=== PATIENT | female | born 1975 | race Asian ===

== ENCOUNTER → 2016-11-27 | Outpatient (CLI) | payer OTHER ==
[~2016-11-27] MED LIST: CARB1CAP9 PO; CARB200T PO; HYDR-3419 PO; LAMO1TAB PO; LAMO1TAB76 PO; NORE0.3526 PO
== END | disposition home or self-care (01) ==
LOC: C.PAPS 10:23
PROVIDERS: ATTEND Physician Assistant
DX: Z12.4 Encounter for screening for malignant neoplasm of cervix (principal)

== ENCOUNTER → 2017-01-15 | Outpatient (CLI) | payer OTHER ==
[~2017-01-15] MED LIST changes: -NORE0.3526 PO; +NORE0.3528 PO
== END | disposition home or self-care (01) ==
LOC: C.PATHSPEC 10:51
PROVIDERS: ATTEND Plastic Surgery
DX: D23.11 Other benign neoplasm of skin of right eyelid, including canthus (principal); D23.39 Other benign neoplasm of skin of other parts of face

== ENCOUNTER 2017-03-03 10:51 | Emergency (ER) | payer OTHER ==
[~2017-03-03] VITALS: Ht 172.7 cm; Wt 71.9 kg
[~2017-03-03 10:51] MED LIST changes: -NORE0.3528 PO
[2017-03-03 10:52] VITALS: TEMP 36.9; Ht 172.7 cm; Wt 71.9 kg
[2017-03-03] MEDS ORDERED: NORE0.3528 PO (11:26)
[2017-03-03 13:02] LABS: BASO % 0.6 %; BASO ABS # 0.03 K/uL (0-0.2); COMPLETE YES; EOS % 1.3 %; HEMATOCRIT 37.6 % (37-47); IG% 0.2 %; LYMPH % 30.5 %; LYMPH ABS # 1.66 K/uL (1.2-3.4); MEAN CELL VOLUME 90.6 fL (80-100); MEAN CORPUSCULAR HEMOGLOBIN 30.8 pg (25-34); MONO % 9.4 %; PLATELET COUNT 224 K/uL (130-400); RED BLOOD COUNT 4.15 M/uL (4.2-5.4); WHITE BLOOD COUNT 5.45 K/uL (4.8-10.8)
--- NOTE | 2017-03-03 13:03 | DIAGNOSTIC IMAGING REPORT ---
SINGLE VIEW CHEST CLINICAL HISTORY: Change in mental status. Weakness. FINDINGS: An AP, portable, upright chest radiograph is compared to study dated 07/15/2013. The examination is degraded by portable technique and patient rotation. The cardiomediastinal silhouette is unremarkable. The lungs and pleural spaces are clear. No pneumothorax is seen. The bony thorax is grossly intact. IMPRESSION: No active disease in the chest. Electronically signed by: Gunnar Nazario M.D. 03/03/2017 12:43 PM Dictated Date/Time: 03/03/2017 12:42 PM
[2017-03-03 13:08] LABS: ALT/SGPT 21 U/L (12-78); BLOOD UREA NITROGEN 5 mg/dl (7-18); BUN/CREATININE RATIO 8.2 (10-20); CALCIUM 8.8 mg/dl (8.5-10.1); CARBON DIOXIDE 27 mmol/L (21-32); CHLORIDE 106 mmol/L (98-107); CREATININE 0.66 mg/dl (0.60-1.20); GLUCOSE 89 mg/dl (70-99); SODIUM 139 mmol/L (136-145)
[2017-03-03 13:12] LABS: ALKALINE PHOSPHATASE 83 U/L (45-117)
--- NOTE | 2017-03-03 13:33 | DIAGNOSTIC IMAGING REPORT ---
HEAD WITHOUT CONTRAST (CT) CLINICAL HISTORY: 41 years-old Female with EVALUATE ALTERED MENTAL STATUS/WEAKNESS. Acute altered mental status. Initial exam. TECHNIQUE: Multiple axial CT images of the head were obtained without contrast. A dose lowering technique was utilized adhering to the principles of ALARA. CT DOSE: 638.56 mGycm COMPARISON: CT head 07/15/2013. FINDINGS: No acute intracranial hemorrhage, midline shift, mass, large territorial ischemia or abnormal extra-axial collection. Focal 6 mm area of low attenuation within the inferior left lentiform nucleus is unchanged suggesting prominent perivascular space with remote lacunar infarction considered less likely. The calvarium is intact. The paranasal sinuses, mastoid air cells, and middle ear cavities are clear. IMPRESSION: No acute intracranial abnormality. The above report was generated using voice recognition software. It may contain grammatical, syntax or spelling errors. Electronically signed by: Tristian Tomlinson M.D. 03/03/2017 1:32 PM Dictated Date/Time: 03/03/2017 1:29 PM
[2017-03-03 13:59] LABS: POTASSIUM 3.3 mmol/L (3.5-5.1)
--- NOTE | 2017-03-03 15:07 | EMERGENCY ROOM VISIT NOTE ---
History Report prepared by Ramiro: Mariah Pang Under the Supervision of: Dr. Fabien Sarabia D.O. First contact with patient: 11:58 Chief Complaint: DIZZY Stated Complaint: DIZZINESS Nursing Triage Summary: Pt. arrived to exam room via EMS transport. Per EMS pt. had dizziness this morning and [facility] staff reported possible seizure activity yesterday and a fall. Pt. reports some dizziness now. History of Present Illness The patient is a 41 year old female who presents to the Emergency Room with complaints of persistent dizziness that began this morning. Per nursing notes, the patient arrives to the emergency department via ALS. Nursing staff notes that the patient complained of dizziness at her [facility] this morning. Nursing staff notes that the patient had possible seizure like activity yesterday and additionally had a fall. The patient denies any pain today. The history is limited secondary to the patient's mental status. Source of History: patient, nursing staff History Limited By: AMS Onset: this morning Position: other (global) Quality: other (dizziness) Timing: other (persistent) Note: Associated Symptoms: seizure like activity, fall Review of Systems The history is limited secondary to the patient's mental status Past Medical & Surgical Medical Problems: (1) Cerebral palsy (2) Seizure disorder Family History Cancer Seizures Social History Smoking Status: Unknown if Ever Smoked Smokeless Tobacco Use: No Alcohol Use: none Marital Status: single Occupation Status: disabled Current/Historical Medications Scheduled Norethindrone (Contraceptive) (Sarah), 1 TAB PO DAILY Allergies Coded Allergies: No Known Allergies (Unverified , 07/15/13) Physical Exam Vital Signs Date Time Temp Pulse Resp B/P (MAP) Pulse Ox O2 Delivery O2 Flow Rate FiO2 03/03/17 14:11 72 14 112/56 100 Room Air 03/03/17 12:16 66 15 123/76 99 Room Air 03/03/17 11:16 66 03/03/17 10:52 36.9 65 15 114/62 100 Room Air Physical Exam CONSTITUTIONAL/VITAL SIGNS: Reviewed / noted above. GENERAL: Non-toxic in appearance. INTEGUMENTARY: Warm, dry, and [employer]. HEAD: Normocephalic. EYES: without scleral icterus or trauma. ENT/OROPHARYNX: clear and moist. LYMPHADENOPATHY/NECK: Is supple without lymphadenopathy or meningismus. RESPIRATORY: Lungs clear and equal. CARDIOVASCULAR: Regular rate and rhythm. GI/ABDOMEN: Soft and nontender. No organomegaly or pulsatile mass. No rebound or guarding. Normal bowel sounds. EXTREMITIES: Warm and well perfused. BACK: No CVA tenderness. NEUROLOGICAL: Intact without focal deficits. PSYCHIATRIC: normal affect. MUSCULOSKELETAL: Normally developed with good muscle tone. Medical Decision & Procedures ER Provider Diagnostic Interpretation: Radiology results as stated below per my review and radiologist interpretation: HEAD WITHOUT CONTRAST (CT) CLINICAL HISTORY: 41 years-old Female with EVALUATE ALTERED MENTAL STATUS/WEAKNESS. Acute altered mental status. Initial exam. TECHNIQUE: Multiple axial CT images of the head were obtained without contrast. A dose lowering technique was utilized adhering to the principles of ALARA. CT DOSE: 638.56 mGycm COMPARISON: CT head 07/15/2013. FINDINGS: No acute intracranial hemorrhage, midline shift, mass, large territorial ischemia or abnormal extra-axial collection. Focal 6 mm area of low attenuation within the inferior left lentiform nucleus is unchanged suggesting prominent perivascular space with remote lacunar infarction considered less likely. The calvarium is intact. The paranasal sinuses, mastoid air cells, and middle ear cavities are clear. IMPRESSION: No acute intracranial abnormality. The above report was generated using voice recognition software. It may contain grammatical, syntax or spelling errors. Electronically signed by: Tristian Tomlinson M.D. 03/03/2017 1:32 PM Dictated Date/Time: 03/03/2017 1:29 PM SINGLE VIEW CHEST CLINICAL HISTORY: Change in mental status. Weakness. FINDINGS: An AP, portable, upright chest radiograph is compared to study dated 07/15/2013. The examination is degraded by portable technique and patient rotation. The cardiomediastinal silhouette is unremarkable. The lungs and pleural spaces are clear. No pneumothorax is seen. The bony thorax is grossly intact. IMPRESSION: No active disease in the chest. Electronically signed by: Gunnar Nazario M.D. 03/03/2017 12:43 PM Dictated Date/Time: 03/03/2017 12:42 PM Laboratory Results 03/03/17 11:02 Red Blood Count 4.15, Mean Corpuscular Volume 90.6, Mean Corpuscular Hemoglobin 30.8, Mean Corpuscular Hemoglobin Concent 34.0, Mean Platelet Volume 11.0, Neutrophils (%) (Auto) 58.0, Lymphocytes (%) (Auto) 30.5, Monocytes (%) (Auto) 9.4, Eosinophils (%) (Auto) 1.3, Basophils (%) (Auto) 0.6, Neutrophils # (Auto) 3.17, Lymphocytes # (Auto) 1.66, Monocytes # (Auto) 0.51, Eosinophils # (Auto) 0.07, Basophils # (Auto) 0.03 03/03/17 11:02 03/03/17 13:34 Test 03/03/17 11:02 03/03/17 12:12 03/03/17 13:34 White Blood Count 5.45 K/uL (4.8-10.8) Red Blood Count 4.15 M/uL (4.2-5.4) Hemoglobin 12.8 g/dL (12.0-16.0) Hematocrit 37.6 % (37-47) Mean Corpuscular Volume 90.6 fL (80-100) Mean Corpuscular Hemoglobin 30.8 pg (25-34) Mean Corpuscular Hemoglobin Concent 34.0 g/dl (32-36) Platelet Count 224 K/uL (130-400) Mean Platelet Volume 11.0 fL (7.4-10.4) Neutrophils (%) (Auto) 58.0 % Lymphocytes (%) (Auto) 30.5 % Monocytes (%) (Auto) 9.4 % Eosinophils (%) (Auto) 1.3 % Basophils (%) (Auto) 0.6 % Neutrophils # (Auto) 3.17 K/uL (1.4-6.5) Lymphocytes # (Auto) 1.66 K/uL (1.2-3.4) Monocytes # (Auto) 0.51 K/uL (0.11-0.59) Eosinophils # (Auto) 0.07 K/uL (0-0.5) Basophils # (Auto) 0.03 K/uL (0-0.2) RDW Standard Deviation 45.1 fL (36.4-46.3) RDW Coefficient of Variation 13.6 % (11.5-14.5) Immature Granulocyte % (Auto) 0.2 % Immature Granulocyte # (Auto) 0.01 K/uL (0.00-0.02) Anion Gap 6.0 mmol/L (3-11) Est Creatinine Clear Calc Drug Dose 113.1 ml/min Estimated GFR () 127.2 Estimated GFR (Non- 109.7 BUN/Creatinine Ratio 8.2 (10-20) Calcium Level 8.8 mg/dl (8.5-10.1) Total Bilirubin 0.9 mg/dl (0.2-1) Alanine Aminotransferase (ALT/SGPT) 21 U/L (12-78) Alkaline Phosphatase 83 U/L (45-117) Total Creatine Kinase U/L (26-192) Creatine Kinase MB < 0.5 ng/ml (0.5-3.6) Total Protein 7.9 gm/dl (6.4-8.2) Albumin 3.7 gm/dl (3.4-5.0) Creatine Kinase MB Ratio (0-3.0) Direct Bilirubin 0.2 mg/dl (0-0.2) Aspartate Amino Transf (AST/SGOT) 15 U/L (15-37) Laboratory results as stated above per my review. ECG Indication: other (dizziness) Rate (beats per minute): 64 Rhythm: normal sinus Findings: no acute ischemic change, no ectopy ED Course 1202: Previous medical records were reviewed. The patient was evaluated in room C4. A complete history and physical examination was performed. 1457: I reevaluated the patient and she is doing well. I discussed the exam findings and I discussed the treatment plan. She verbalized complete understanding and agreement. She is ready for discharge. Medical Decision Differentials include: Acute coronary syndrome, myocardial infarction, CVA, TIA , anemia, infection, pneumonia, UTI, pyelonephritis, poor nutrition, dehydration , electrolyte disturbance, and hypoglycemia. This is a 41-year-old female who presents to the ED with a chief complaint of some dizziness and possible seizure activity. No one presents with the patient. The patient denies any specific complaints at this time. Her evaluation was completely normal as was her physical exam. Vital signs are stable. Chest x-ray did not show acute disease. CT scan of the brain did not show any acute process. Blood work was unremarkable. Based on the patient's exam and her blood work as well as imaging studies, I feel the patient is safe for discharge. There was no evidence of injury to the tongue or incontinence. I feel seizure activity was not likely. History of Medication Reconcilliation Current Medication List: was personally reviewed by me Blood Pressure Screening Patient's blood pressure: Normal blood pressure Blood pressure disposition: Did not require urgent referral Impression Primary Impression: Dizziness Scribe Attestation The scribe's documentation has been prepared under my direction and personally reviewed by me in its entirety. I confirm that the note above accurately reflects all work, treatment, procedures, and medical decision making performed by me. Departure Information Dispostion Home / Self-Care Referrals No Doctor, Assigned (PCP) Patient Instructions [facility] Additional Instructions Follow-up with your doctor for further care and evaluation in 1-2 days. Return to the emergency department for worsening or new symptoms or any concerns. You have been examined and treated today on an emergency basis only. This is not a substitute for, or an effort to provide, complete comprehensive medical care. It is impossible to recognize and treat all injuries or illnesses in a single emergency department visit. It is therefore important that you follow up closely with your doctor. Call as soon as possible for an appointment.
[2017-03-03 15:35] VITALS: BP 115/63; PULSE 66; O2SAT 99
== END 2017-03-03 15:35 | disposition home or self-care (01) ==
LOC: EDBD 10:51 → C.EDC 10:55
DX: R42 Dizziness and giddiness (principal); G40.909 Epilepsy, unspecified, not intractable, without status epilepticus; W19.XXXA Unspecified fall, initial encounter; Y92.199 Unspecified place in other specified residential institution as the place of occurrence of the external cause; G80.9 Cerebral palsy, unspecified; F79 Unspecified intellectual disabilities; Z80.9 Family history of malignant neoplasm, unspecified; Z82.0 Family history of epilepsy and other diseases of the nervous system; Z79.899 Other long term (current) drug therapy

== ENCOUNTER 2022-05-15 09:39 | Observation (INO) ==
[2022-05-15] MEDS ORDERED: levETIRAcetam 1,000 MG in 0.9 % SODIUM CHLORIDE 100 ML IV STA ×2 (09:54→11:10)
[2022-05-15] MEDS ORDERED: SODIUM CHLORIDE 0.9% 500 ML IV SCH (10:00)
[2022-05-15 10:10] LABS: Basophils # (auto) 0.03 K/uL (0-0.2); Basophils % (auto) 0.8 %; Eosinophils # (auto) 0.02 K/uL (0-0.50); Eosinophils % (auto) 0.6 %; Hematocrit (blood only) 33.8 % (34.1-44.9); Hemoglobin 11.1 g/dl (12.0-16.0); Immature Granulocytes # (auto) 0.01 K/uL (0.00-0.02); Immature Granulocytes % (auto) 0.3 %; Lymphocytes # (auto) 0.79 K/uL (1.2-3.4); Lymphocytes % (auto) 22.1 %; Mean Corpuscular Hgb Conc 32.8 g/dL (32.0-36.0); Mean Corpuscular Volume 85.1 fL (80.0-100.0); Mean Platelet Volume 10.1 fL (9.4-12.3); Monocytes % (auto) 8.4 %; Neutrophils # (auto) 2.43 K/uL (1.4-6.5); Neutrophils % (auto) 67.8 %; Platelet Count 259 K/uL (130-400); RDW Coefficient of Variation 14.4 % (11.5-14.5); RDW Standard Deviation 44.7 fL (36.4-46.3); Red Blood Count 3.97 M/uL (3.93-5.22); White Blood Count 3.58 K/ul (4.8-10.8)
[2022-05-15 10:31] LABS: Albumin Globulin Ratio 1.3 (0.9-2); Albumin Level 3.7 gm/dl (3.4-5.0); BUN Creatinine Ratio 13.5 (10-20); Bilirubin,Total 0.7 mg/dl (0.2-1.0); Calcium 8.4 mg/dl (8.5-10.1); Creatinine Clr Calc Pharmacy 99.3 ml/min; Est GFR (African American) 112.6 ml/min; Est GFR (Non-African American) 97.2 ml/min; Globulin 2.8 gm/dl (2.5-4.0); Potassium 3.6 mmol/L (3.5-5.1); Total Protein 6.5 gm/dl (6.0-8.3)
--- NOTE | 2022-05-15 11:09 | XRay Report ---
XR chest 1V portable CLINICAL HISTORY: weakness TECHNIQUE: Single frontal radiograph of the chest was obtained. Comparison: Comparison is made to chest radiograph 03/03/2017 FINDINGS: No lines and tubes are seen. The cardiomediastinal silhouette is normal. The lungs are clear. No evid ence of pleural effusion or pneumothorax. IMPRESSION: No acute chest disease. ACT 112: Negative or not required by law. Electronically signed by: Dominic Ruffin M.D. 05/15/2022 11:08 AM
[2022-05-15] MEDS ORDERED: SODIUM CHLORIDE 0.9% 1000ML 1,000 ML IV ONE (11:10)
--- NOTE | 2022-05-15 11:15 | Emergency Department Note ---
Impression & Plan Status epilepticus, Seizure ED Provider Note NAME: SHAWNA BELL AGE: 46 SEX: F : 1975 ARRIVES VIA: Ambulance INFORMANT: Patient ED PROVIDER(S): Jose Schultz DO CHIEF COMPLAINT: seizure HPI: Patient is a 46-year-old female who presents to the ER for seizure. Patient has a history of CP and a seizure disorder. Has not had a seizure for several months. Notes that she was eating breakfast and had a seizure. She does not remember anything after this. Seizure lasted for about 25 minutes and was given 2 of Ativan. She came out of it and then had another seizure which lasted for 10 minutes and was given 2.5 of Versed. This eventually broke. She currently denies any headache or change in vision. She denies any chest pain or shortness of breath. No belly pain. She does have some nausea. No dysuria, urgency, or frequency. No weak focal weakness or numbness in the arms or legs. No other exacerbating or remitting factors. She has not missed any doses of her medications. ROS: See above HPI for pertinent positives & negatives. A total of 10 systems reviewed and were otherwise negative. PAST MEDICAL HISTORY:See Below PAST SURGICAL HISTORY:See Below FAMILY HISTORY:See Below SOCIAL HISTORY:See Below HOME MEDICATIONS:See Below ALLERGIES:See Below VITALS:See Below PHYSICAL EXAMINATION: GENERAL: Sitting up in bed, alert, well appearing, well nourished, no distress, non-toxic EYE EXAM: normal conjunctiva. PERRL and EOM's intact. OROPHARYNX: no exudate, no erythema, lips, buccal mucosa, and tongue normal and mucous membranes are moist NECK: supple, no nuchal rigidity, no adenopathy, non-tender LUNGS: Clear to auscultation. Normal chest wall mechanics HEART: no murmurs, S1 normal and S2 normal ABDOMEN: abdomen soft, non-tender, normo-active bowel sounds, no masses, no rebound or guarding. UPPER EXTREMITIES: upper extremities are grossly normal. LOWER EXTREMITIES: No pitting edema. NEURO EXAM: Normal sensorium, cranial nerves II-XII intact, normal speech, no weakness of arms, no weakness of legs. No drift. Finger to nose intact. Gross sensation intact. MEDICAL DECISION MAKING: Patient is a 46-year-old female who presents ER for 2 seizures lasting a total of about 30 minutes. IV was established blood work was obtained. Received Ativan and Versed. Labs show no significant anemia. Mild leukopenia of 3.5 thousand. BMP along with LFTs bilirubin was unremarkable. Troponin was negative. TSH unremarkable. Viral panel was negative. CT head and cervical spine was unremarkable. Chest x-ray was clean. Patient was given IV Keppra and fluids. Mom was updated at bedside. Due to the protracted length of seizure and status patient was admitted for further work-up currently at her baseline. Triage Nursing notes reviewed. Limited review of prior medical records performed Vital Signs: reviewed and remarkable for no significant abnormalities Differential diagnosis: Differential diagnosis includes etiologies such as infection, hypoglycemia, electrolyte abnormalities, cardiac sources, intracerebral event, trauma, toxicologic, neurologic, as well as others were entertained. ER treatment provided: See below Diagnostics interpreted by me: ECG: Sinus rhythm rate of 96 Poor baseline No PVCs QTC 454 Cardiac Monitoring: An order was placed for continuous cardiac monitoring. The monitor shows a rate of 92 with sinus rhythm. Laboratory studies: As stated above and show below. Imaging studies: CT head was negative Portable AP upright 1 view of the chest was unremarkable Consultation(s): Discussed with Fabiola kamara for further evaluation Procedures: none Critical Care: None Past Med/Surg History Medical History Cerebral palsy Intellectual disability Seizure disorder Present since . Surgical History Hx of knee surgery as child left knee surgery Family History Aunt Breast cancer Grandmother (Maternal) Colorectal cancer Hypertension Mother Hypertension Dyslipidemia Father Hypothyroidism Grandfather (Maternal) Hypertension Grandmother (Paternal) Renal dysfunction Denies family history of Ovarian cancer Prostate cancer Myocardial infarction Uterine cancer Social History Smoking Status: Never smoker Second Hand Exposure: No; Hx Alcohol Use: No Hx Substance Use: No Preferred Language: Samoan Communication Ability: Impaired Visual Impairment: No Limitations Hearing Ability: Normal Lead 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 Required: No marital status: Single Current Living Situation: Parent current occupational status: disabled How many Children do You have: 0 Feels Safe at Home: Yes Safety Concerns: Feels Safe At This Time Childhood Exposure to Second-Hand Smoke: No caffeine: No Dental Care, Regularly: Yes Physical Activity Frequency: Does not Exercise Seatbelt Use: always Sunscreen Use: Yes Assistive Devices: Walker Allergies Allergies Allergy/AdvReac Type Severity Reaction Status Date / Time No Known Allergies Allergy Verified 05/15/22 10:41 Home Meds Home Medications Medication Instructions Recorded Confirmed lamotrigine 200 mg tablet 200 mg PO BID 05/15/22 05/15/22 Previous Rx's Medication Instructions Recorded lamotrigine 25 mg tablet 50 mg PO BID 90 days #360 tabs 04/12/21 norethindrone acetate 5 mg tablet 5 mg PO DAILY 90 days #90 tabs 04/26/21 Results & Data (ED) Vital Signs Vital Signs - 24 hr 05/15/22 09:48 05/15/22 09:48 05/15/22 09:48 Temperature 37.0 C Temperature Source Oral Oral Pulse Rate 94 H Pulse Rate [Apical] Respiratory Rate 14 Respiratory Effort / Characteristics Non-Labored Respiratory Depth Normal Respiratory Pattern Regular Blood Pressure 137/75 Blood Pressure [Right Arm] Blood Pressure Mean 95 Blood Pressure Mean [Right Arm] Blood Pressure Position Sitting Pulse Oximetry 99 Oxygen Delivery Method Room Air Room Air Sepsis Recent Fever Within 48 Hours No Sepsis New/Unexplained Change in Mental Status No Sepsis Action Taken by Nursing No Action Required 05/15/22 09:52 05/15/22 09:54 05/15/22 11:39 Temperature Temperature Source Pulse Rate Pulse Rate [Apical] 85 Respiratory Rate 16 Respiratory Effort / Characteristics Non-Labored Respiratory Depth Normal Respiratory Pattern Blood Pressure Blood Pressure [Right Arm] 120/68 Blood Pressure Mean Blood Pressure Mean [Right Arm] 85 Blood Pressure Position Pulse Oximetry 99 100 Oxygen Delivery Method Room Air Room Air Room Air Sepsis Recent Fever Within 48 Hours Sepsis New/Unexplained Change in Mental Status Sepsis Action Taken by Nursing 05/15/22 12:58 Temperature Temperature Source Pulse Rate Pulse Rate [Apical] 68 Respiratory Rate 16 Respiratory Effort / Characteristics Non-Labored Spontaneous Respiratory Depth Normal Respiratory Pattern Blood Pressure Blood Pressure [Right Arm] 131/68 Blood Pressure Mean Blood Pressure Mean [Right Arm] 89 Blood Pressure Position Pulse Oximetry 100 Oxygen Delivery Method Room Air Sepsis Recent Fever Within 48 Hours Sepsis New/Unexplained Change in Mental Status Sepsis Action Taken by Nursing Laboratory Data Result diagrams: 05/15/22 09:55 05/15/22 09:55 Lab Results 05/15/22 05/15/22 05/15/22 Range/Units 09:55 09:55 09:55 WBC 3.58 L (4.8-10.8) K/ul RBC 3.97 (3.93-5.22) M/uL Hgb 11.1 L (12.0-16.0) g/dl Hct 33.8 L (34.1-44.9) % MCV 85.1 (80.0-100.0) fL MCH 28.0 (25.0-34.0) pg MCHC 32.8 (32.0-36.0) g/dL RDW Std Deviation 44.7 (36.4-46.3) fL RDW Coeff of Becky 14.4 (11.5-14.5) % Plt Count 259 (130-400) K/uL MPV 10.1 (9.4-12.3) fL Immature Gran % (Auto) 0.3 % Neut % (Auto) 67.8 % Lymph % (Auto) 22.1 % [place] % (Auto) 8.4 % Eos % (Auto) 0.6 % Baso % (Auto) 0.8 % Neut # (Auto) 2.43 (1.4-6.5) K/uL Lymph # (Auto) 0.79 L (1.2-3.4) K/uL [place] # (Auto) 0.30 (0.24-0.82) K/uL Eos # (Auto) 0.02 (0-0.50) K/uL Baso # (Auto) 0.03 (0-0.2) K/uL Immature Gran # (Auto) 0.01 (0.00-0.02) K/uL Sodium 139 (136-145) mmol/L Potassium 3.6 (3.5-5.1) mmol/L Chloride 107 (98-107) mmol/L Carbon Dioxide 25 (21-32) mmol/L Anion Gap 7 (3-11) BUN 10 (6-23) mg/dl Creatinine 0.74 (0.6-1.2) mg/dl Est Cr Clr Drug Dosing 99.3 ml/min Est GFR ( Amer) 112.6 ml/min Est GFR (Non-Af Amer) 97.2 ml/min BUN/Creatinine Ratio 13.5 (10-20) Glucose 84 (70-99(Fasting)) mg/dl Calcium 8.4 L (8.5-10.1) mg/dl Magnesium 2.0 (1.7-2.4) mg/dl Total Bilirubin 0.7 (0.2-1.0) mg/dl AST 14 (13-39) U/L ALT 8 (7-52) U/L Alkaline Phosphatase 53 (34-104) U/L Troponin I High Sens (0-14) pg/ml Total Protein 6.5 (6.0-8.3) gm/dl Albumin 3.7 (3.4-5.0) gm/dl Globulin 2.8 (2.5-4.0) gm/dl Albumin/Globulin Ratio 1.3 (0.9-2) TSH 1.288 (0.300-4.500) uIu/ml SARS-CoV-2 (PCR) (Negative) Influenza Type A (PCR) (Neg) Influenza Type B (PCR) (Neg) RSV (RT-PCR) (Neg) 05/15/22 05/15/22 Range/Units 10:20 11:24 WBC (4.8-10.8) K/ul RBC (3.93-5.22) M/uL Hgb (12.0-16.0) g/dl Hct (34.1-44.9) % MCV (80.0-100.0) fL MCH (25.0-34.0) pg MCHC (32.0-36.0) g/dL RDW Std Deviation (36.4-46.3) fL RDW Coeff of Becky (11.5-14.5) % Plt Count (130-400) K/uL MPV (9.4-12.3) fL Immature Gran % (Auto) % Neut % (Auto) % Lymph % (Auto) % [place] % (Auto) % Eos % (Auto) % Baso % (Auto) % Neut # (Auto) (1.4-6.5) K/uL Lymph # (Auto) (1.2-3.4) K/uL [place] # (Auto) (0.24-0.82) K/uL Eos # (Auto) (0-0.50) K/uL Baso # (Auto) (0-0.2) K/uL Immature Gran # (Auto) (0.00-0.02) K/uL Sodium (136-145) mmol/L Potassium (3.5-5.1) mmol/L Chloride (98-107) mmol/L Carbon Dioxide (21-32) mmol/L Anion Gap (3-11) BUN (6-23) mg/dl Creatinine (0.6-1.2) mg/dl Est Cr Clr Drug Dosing ml/min Est GFR ( Amer) ml/min Est GFR (Non-Af Amer) ml/min BUN/Creatinine Ratio (10-20) Glucose (70-99(Fasting)) mg/dl Calcium (8.5-10.1) mg/dl Magnesium (1.7-2.4) mg/dl Total Bilirubin (0.2-1.0) mg/dl AST (13-39) U/L ALT (7-52) U/L Alkaline Phosphatase (34-104) U/L Troponin I High Sens 3.4 (0-14) pg/ml Total Protein (6.0-8.3) gm/dl Albumin (3.4-5.0) gm/dl Globulin (2.5-4.0) gm/dl Albumin/Globulin Ratio (0.9-2) TSH (0.300-4.500) uIu/ml SARS-CoV-2 (PCR) NEGATIVE (Negative) Influenza Type A (PCR) Negative (Neg) Influenza Type B (PCR) Negative (Neg) RSV (RT-PCR) Negative (Neg) Administered Medications Discontinued Medications Sodium Chloride (Nss) 500 mls @ 999 mls/hr IV .Q31M MILADYS Stop: 05/15/22 10:30 Last Infusion: 05/15/22 10:49 Dose: 0 mls/hr Documented By: Admin: 05/15/22 10:12 Dose: 999 mls/hr Documented By: MALLORY Levetiracetam 1,000 mg/ Sodium (Chloride) 110 mls @ 440 mls/hr IV NOW STA Stop: 05/15/22 10:08 Last Infusion: 05/15/22 10:26 Dose: 0 mls/hr Documented By: Admin: 05/15/22 10:11 Dose: 440 mls/hr Documented By: MALLORY Sodium Chloride (Nss 1000ml) 1,000 mls @ 999 mls/hr IV .Q1H1M ONE Stop: 05/15/22 12:10 Last Infusion: 05/15/22 12:50 Dose: 0 mls/hr Documented By: Admin: 05/15/22 11:37 Dose: 999 mls/hr Documented By: HAIDER Levetiracetam 1,000 mg/ Sodium (Chloride) 110 mls @ 440 mls/hr IV NOW STA Stop: 05/15/22 11:24 Last Admin: 05/15/22 11:25 Dose: Not Given Documented By: HAIDER Imaging Data Radiologist's Impression: Chest X-Ray 05/15/22 09:54 XR chest 1V portable CLINICAL HISTORY: weakness TECHNIQUE: Single frontal radiograph of the chest was obtained. Comparison: Comparison is made to chest radiograph 03/03/2017 FINDINGS: No lines and tubes are seen. The cardiomediastinal silhouette is normal. The lungs are clear. No evidence of pleural effusion or pneumothorax. IMPRESSION: No acute chest disease. ACT 112: Negative or not required by law. Electronically signed by: Dominic Ruffin M.D. 05/15/2022 11:[address] 05/15/22 11:[address] DOSE: 1221.74 mGy.cm HISTORY: seizure TECHNIQUE: Multiaxial CT images of the cervical spine were performed and reformatted in the sagittal and coronal plane without the use of contrast. A dose lowering technique was utilized adhering to the principles of ALARA. COMPARISON: Cervical spine CT 07/15/2013. FINDINGS: No fractures. No subluxation. Prevertebral soft tissues and the C1-C2 interval are intact. No pneumothorax. A few subcentimeter thyroid nodules measuring up to 9 mm. These appear stable and do not meet CT criteria for follow-up. IMPRESSION: No fractures within the cervical spine. ACT 112: Negative or not required by law. Electronically signed by: Mitchell aPrker M.D. 05/15/2022 12:[address] 05/15/22 11:10 CT SCAN OF THE BRAIN WITHOUT IV CONTRAST CLINICAL HISTORY: Seizure. COMPARISON STUDY: CT of the brain dated 03/03/2017. TECHNIQUE: Unenhanced axial CT scan of the brain is performed from the vertex to the skull base. A dose lowering technique was utilized adhering to the principles of ALARA. The patient was scanned twice due to motion artifact. FINDINGS: Brain parenchyma: The brain parenchyma is normal in appearance. A prominent perivascular space is again seen on the left. There is no hemorrhage, mass effect, or evidence of acute territorial ischemia by CT criteria. Gonzalez-white matter differentiation is preserved. No extra-axial fluid collection is seen. Ventricles, sulci, cisterns: Normal in configuration. Intracranial vasculature: The visualized intracranial vasculature at the skull base is normal in appearance. Calvarium: Unremarkable. Sinuses and mastoids: The visualized paranasal sinuses are clear. The mastoid air cells are well pneumatized. Orbits: The bony orbits are grossly intact. IMPRESSION: No acute intracranial abnormality. ACT 112: Negative or not required by law. Electronically signed by: Gunnar Nazario M.D. 05/15/2022 12:28 PM Discharge Plan Visit Data Chief Complaint: Seizure Stated Complaint: SEIZURE ED Provider: Jose Schultz Discharge Problem: Status epilepticus, Seizure Patient Disposition: Admitted As Inpatient Discharge Instructions Interventions: ED Discharge Assessment Last Done: 05/15/22 14:14
[2022-05-15 11:17] LABS: Influenza A virus by PCR Negative (Neg); Influenza B virus by PCR Negative (Neg); RSV by PCR Negative (Neg); SARS CoV2 RNA(COVID-19)Cepheid NEGATIVE (Negative)
--- NOTE | 2022-05-15 12:22 | Electrocardiogram Report ---
Test Reason : Blood Pressure : / mmHG Vent. Rate : 096 BPM Atrial Rate : 096 BPM P-R Int : 138 ms QRS Dur : 092 ms QT Int : 360 ms P-R-T Axes : 060 066 059 degrees QTc Int : 454 ms Poor data quality, interpretation may be adversely affected Normal sinus rhythm Normal ECG When compared with ECG of 03-MAR-2017 11:08, Vent. rate has increased BY 32 BPM Otherwise no significant change Confirmed by Anthony Ulloa ([id number]) on 05/15/2022 12:22:25 PM Referred By: Confirmed By:Anthony Ulloa
--- NOTE | 2022-05-15 12:31 | CT Scan Report ---
CT SCAN OF THE BRAIN WITHOUT IV CONTRAST CLINICAL HISTORY: Seizure. COMPARISON STUDY: CT of the brain dated 03/03/2017. TECHNIQUE: Unenhanced axial CT scan of the brain is performed from the vertex to the skull base. A d ose lowering technique was utilized adhering to the principles of ALARA. The patient was scanned twic e due to motion artifact. FINDINGS: Brain parenchyma: The brain parenchyma is normal in appearance. A prominent perivascular space is aga in seen on the left. There is no hemorrhage, mass effect, or evidence of acute territorial ischemia b y CT criteria. Gonzalez-white matter differentiation is preserved. No extra-axial fluid collection is see n. Ventricles, sulci, cisterns: Normal in configuration. Intracranial vasculature: The visualized intracranial vasculature at the skull base is normal in appe arance. Calvarium: Unremarkable. Sinuses and mastoids: The visualized paranasal sinuses are clear. The mastoid air cells are well pneu matized. Orbits: The bony orbits are grossly intact. IMPRESSION: No acute intracranial abnormality. ACT 112: Negative or not required by law. Electronically signed by: Gunnar Nazario M.D. 05/15/2022 12:28 PM
--- NOTE | 2022-05-15 12:45 | CT Scan Report ---
CERVICAL SPINE CT CT DOSE: 1221.74 mGy.cm HISTORY: seizure TECHNIQUE: Multiaxial CT images of the cervical spine were performed and reformatted in the sagittal and coronal plane without the use of contrast. A dose lowering technique was utilized adhering to th e principles of ALARA. COMPARISON: Cervical spine CT 07/15/2013. FINDINGS: No fractures. No subluxation. Prevertebral soft tissues and the C1-C2 interval are intact. No pneumothorax. A few subcentimeter thyroid nodules measuring up to 9 mm. These appear stable and do not meet CT criteria for follow-up. IMPRESSION: No fractures within the cervical spine. ACT 112: Negative or not required by law. Electronically signed by: Mitchell Parker M.D. 05/15/2022 12:44 PM
--- NOTE | 2022-05-15 15:07 | History & Physical Report ---
Date of Service May 15, 2022 Assessment & Plan (1) Myoclonus: (2) Seizure disorder: Plan: Admit to telemetry Patient presenting after a 30 min episode of generalized jerking/myoclonus without loss of consciousness History of seizure disorder, typically managed on Lamictal 250 mg BID S/p Keppra 1g IV in the ED, continue with Keppra 500mg IV BID Brain MRI Seizure precautions r/o toxic and metabolic causes, check Lamictal level Neurology consult, case discussed with Dr. Unger (3) Cerebral palsy: Plan: w/ intellectual disability Ambulates with walker at baseline (4) DVT prophylaxis: Plan: SCDs History of Present Illness Chief Complaint: Seizure-like activity Primary Care Provider: Nannette Pino MD 46-year-old female PMH intellectual disability, ataxic cerebral palsy, absence seizure disorder, and other problems listed below who presents the ED for evaluation of seizure-like activity. Patient's mother is the bedside who provides some history. Patient recently moved to [place], [place] with her family. She was visiting the area for an appointment with her neurologist, Dr. Unger, on 05/13/2022. Patient's mother states that this morning while they were out to breakfast, patient started to have generalized jerking however did not lose consciousness. Symptoms went on for about 30 minutes and EMS was called. Patient received IV Ativan and IV Versed in route to the ED. Patient's mother states that she typically has a seizure every few weeks at home. Last seizure was about 3 weeks ago. States that patient typically will stare off while having a seizure and sometimes fall over if she is standing. Episodes usually last about 20 to 30 seconds and patient is nonresponsive. No other recent illnesses, fevers, chills. Denies headache and blurred vision. There was no tongue biting or loss of bowel or bladder function during today's episode. I was able to arouse the patient during my exam. She states " I do not know what happened this morning, I could not stop jerking. This is never happened to me before." In the ED, patient is hemodynamically stable. Head CT is unremarkable for acute findings. Labs are unremarkable. Patient was given IVF and loaded with 1 g of Keppra IV. Allergies Allergy/AdvReac Type Severity Reaction Status Date / Time No Known Allergies Allergy Verified 05/15/22 10:41 Home Medications Medication Instructions Recorded Confirmed Type lamotrigine 25 mg tablet 50 mg PO BID 90 days #360 tabs 04/12/21 05/15/22 Rx norethindrone acetate 5 mg tablet 5 mg PO DAILY 90 days #90 tabs 04/26/21 05/15/22 Rx lamotrigine 200 mg tablet 200 mg PO BID 05/15/22 05/15/22 History Past Med/Surg History Medical History Cerebral palsy Intellectual disability Seizure disorder Present since . Surgical History Hx of knee surgery as child left knee surgery Family History Aunt Breast cancer Grandmother (Maternal) Colorectal cancer Hypertension Mother Hypertension Dyslipidemia Father Hypothyroidism Grandfather (Maternal) Hypertension Grandmother (Paternal) Renal dysfunction Denies family history of Ovarian cancer Prostate cancer Myocardial infarction Uterine cancer Social History Smoking Status: Never smoker Second Hand Exposure: No; Hx Alcohol Use: No Hx Substance Use: No Preferred Language: Hebrew Communication Ability: Impaired Visual Impairment: No Limitations Hearing Ability: Normal Artist Model Required: No marital status: Single Current Living Situation: Parent current occupational status: disabled How many Children do You have: 0 Feels Safe at Home: Yes Safety Concerns: Feels Safe At This Time Childhood Exposure to Second-Hand Smoke: No caffeine: No Dental Care, Regularly: Yes Physical Activity Frequency: Does not Exercise Seatbelt Use: always Sunscreen Use: Yes Assistive Devices: Walker Review of Systems Review of Systems: ROS per HPI, all other systems reviewed and negative Physical Exam Constitutional: WD/WN, vitals as above Eyes: PERRL, conjunctivae normal, anicteric sclerae ENMT: external ear and nose normal, oropharynx normal Respiratory: normal respiratory effort, lungs clear to auscultation Cardiovascular: Rate/Rhythm: regular rate and regular rhythm Vessels: normal peripheral pulses Extremities: no edema Gastrointestinal (Abdomen): normal bowel sounds, soft, nontender, no hepatosplenomegaly Musculoskeletal: Extremities: no cyanosis and no clubbing strength 4/5 RLE, 3-4/5 LLE -- chronic per patient's mother Skin: no rashes, warm and dry Neurologic: PERRL, EOMI, accommodation nl, no face palsy, no dysarthria Psychiatric: A+Ox3, euthymic affect Insight: + limited insight (underlying intellectual disability) Results & Data Results & Data ([facility]) Vital Signs (Past 12 Hours) Vital Signs Temp Pulse Pulse Resp BP BP Pulse Ox 05/15/22 12:58 68 16 131/68 100 05/15/22 11:39 85 16 120/68 100 05/15/22 09:54 05/15/22 09:52 99 05/15/22 09:48 05/15/22 09:48 37.0 C 94 H 14 137/75 99 O2 Del Method 05/15/22 12:58 Room Air 05/15/22 11:39 Room Air 05/15/22 09:54 Room Air 05/15/22 09:52 Room Air 05/15/22 09:48 Room Air 05/15/22 09:48 Room Air Laboratory Results Short CBC 05/15/22 Range/Units 09:55 WBC 3.58 L (4.8-10.8) K/ul Hgb 11.1 L (12.0-16.0) g/dl Hct 33.8 L (34.1-44.9) % Plt Count 259 (130-400) K/uL BMP 05/15/22 09:55 Sodium 139 Potassium 3.6 Chloride 107 Carbon Dioxide 25 BUN 10 Creatinine 0.74 Glucose 84 Calcium 8.4 L Liver Function 05/15/22 Range/Units 09:55 Total Bilirubin 0.7 (0.2-1.0) mg/dl AST 14 (13-39) U/L ALT 8 (7-52) U/L Alkaline Phosphatase 53 (34-104) U/L Albumin 3.7 (3.4-5.0) gm/dl Diagnostic Findings Chest X-Ray 05/15/22 09:54 XR chest 1V portable CLINICAL HISTORY: weakness TECHNIQUE: Single frontal radiograph of the chest was obtained. Comparison: Comparison is made to chest radiograph 03/03/2017 FINDINGS: No lines and tubes are seen. The cardiomediastinal silhouette is normal. The lungs are clear. No evidence of pleural effusion or pneumothorax. IMPRESSION: No acute chest disease. ACT 112: Negative or not required by law. Electronically signed by: Dominic Ruffin M.D. 05/15/2022 11:[address] 05/15/22 11:[address] DOSE: 1221.74 mGy.cm HISTORY: seizure TECHNIQUE: Multiaxial CT images of the cervical spine were performed and reformatted in the sagittal and coronal plane without the use of contrast. A dose lowering technique was utilized adhering to the principles of ALARA. COMPARISON: Cervical spine CT 07/15/2013. FINDINGS: No fractures. No subluxation. Prevertebral soft tissues and the C1-C2 interval are intact. No pneumothorax. A few subcentimeter thyroid nodules measuring up to 9 mm. These appear stable and do not meet CT criteria for follow-up. IMPRESSION: No fractures within the cervical spine. ACT 112: Negative or not required by law. Electronically signed by: Mitchell Parker M.D. 05/15/2022 12:[address] 05/15/22 11:10 CT SCAN OF THE BRAIN WITHOUT IV CONTRAST CLINICAL HISTORY: Seizure. COMPARISON STUDY: CT of the brain dated 03/03/2017. TECHNIQUE: Unenhanced axial CT scan of the brain is performed from the vertex to the skull base. A dose lowering technique was utilized adhering to the principles of ALARA. The patient was scanned twice due to motion artifact. FINDINGS: Brain parenchyma: The brain parenchyma is normal in appearance. A prominent perivascular space is again seen on the left. There is no hemorrhage, mass effect, or evidence of acute territorial ischemia by CT criteria. Gonzalez-white matter differentiation is preserved. No extra-axial fluid collection is seen. Ventricles, sulci, cisterns: Normal in configuration. Intracranial vasculature: The visualized intracranial vasculature at the skull base is normal in appearance. Calvarium: Unremarkable. Sinuses and mastoids: The visualized paranasal sinuses are clear. The mastoid air cells are well pneumatized. Orbits: The bony orbits are grossly intact. IMPRESSION: No acute intracranial abnormality. ACT 112: Negative or not required by law. Electronically signed by: Gunnar Nazario M.D. 05/15/2022 12:28 PM Code Status & VTE Plan VTE Prophylaxis Plan VTE Prophylaxis will be ordered: Yes Supervising Physician Co-Signing Physician Notes I have seen and examined the patient and have discussed the case with the provider above. I agree with the assessment and plan as stated. 46 yo F with cerebral palsy who ambulates with a walker at baseline and lives at home, totally cared for by family. They are at bedside and give the history of events. They report she has started falling more lately and that Cathryn has difficulty with balance. Notably she is vitamin D deficient. No urinary symptoms reported but there is more incontinence noticed by family and Cathryn wears depends in case of accidents. This morning she was sitting at breakfast and her legs began to repeatedly jerk. I was able to view a video of this and it showed the jerking occuring every 2-3 seconds while she continued to chew her food and look around, intermittenly conversing. There was no loss of postural tone. At one point, the family did lay her down on the ground, but there was no change in her status that demanded that and she remained the same. There has been no evidence of infection. There was a reported epistaxis event this morning, and a small amount of epistaxis last night, too. Family reports epistaxis events have been occurring more frequently, approximately 1-2 times per week. Also, mom states that menstrual cycles are minimal and irregular. She is on OCPs. Labwork reveals iron deficiency anemia but otherwise labs are unremarkable. She appears comfortable and is mentating at her baseline. She has equal strength and movement in her arms and legs bilaterally with some decreased ability to bend her left knee that is since . She has no gross neurologic deficit. Exam is otherwise unremarkable. New myoclonus in cerebral palsy patient with known h/o absence seizures who is on lamotrigine at baseline, now with new myoclonic jerking of uncertain etiology. Cont with Kitty per neurology, MR brain overnight, telemetry monitoring. Will need to facilitate getting her placed to SNF per family needs as they are unable to care for her at home any longer. Family reports living in [place] and would like her to go to [facility] [place]. [place], DO
[2022-05-15 15:24] LABS: C Reactive Protein < 0.50 mg/dl (0-0.5)
[2022-05-15 15:38] LABS: Ferritin 6.2 ng/ml (8-388)
[2022-05-15 16:37] LABS: Vitamin D, 25 Hydrox 11.2 ng/ml (30-100)
[2022-05-15] MEDS ORDERED: GADOBUTROL 65ML VIAL IV ONE (18:43)
[2022-05-15] MEDS: lamoTRIgine 25 MG TAB PO SCH (20:11)
[2022-05-15] MEDS: levETIRAcetam 500 MG in 0.9 % SODIUM CHLORIDE 100 ML IV SCH (20:11)
[2022-05-15] MEDS: lamoTRIgine 100 MG TAB PO SCH (20:11)
[2022-05-15] MEDS: ERGOCALCIFEROL 50,000 UNITS 1250 MCG CAP PO SCH (20:11)
[2022-05-15 22:07] LABS: Appearance Urine Clear (Clear); Bacteria Urine Automated Negative (Negative); Bilirubin Urine Negative (Negative); Blood Urine Negative (Negative); Color Urine Yellow; Glucose Urine UA Negative (Negative); Ketones Urine 1+ (Negative); Leukocyte Esterase Urine 1+ (Negative); Nitrite Urine Negative (Negative); Protein Urine Negative (Negative); RBC Urine Automated 0-4 /hpf (0-4); Specific Gravity Urine 1.021 (1.000-1.030); Urobilinogen Urine Negative (Negative)
[2022-05-16 06:25] LABS: Hematocrit (blood only) 33.7 % (34.1-44.9); Hemoglobin 11.2 g/dl (12.0-16.0); Mean Corpuscular Hemoglobin 28.1 pg (25.0-34.0); Mean Corpuscular Hgb Conc 33.2 g/dL (32.0-36.0); Mean Corpuscular Volume 84.5 fL (80.0-100.0); Mean Platelet Volume 10.2 fL (9.4-12.3); Platelet Count 260 K/uL (130-400); RDW Coefficient of Variation 14.4 % (11.5-14.5); RDW Standard Deviation 44.4 fL (36.4-46.3); Red Blood Count 3.99 M/uL (3.93-5.22); White Blood Count 4.42 K/ul (4.8-10.8)
[2022-05-16 06:45] LABS: BUN Creatinine Ratio 16.4 (10-20); Calcium 8.4 mg/dl (8.5-10.1); Creatinine Clr Calc Pharmacy 108.2 ml/min; Est GFR (African American) 122.2 ml/min; Est GFR (Non-African American) 105.4 ml/min; Potassium 3.9 mmol/L (3.5-5.1)
[2022-05-16] MEDS: lamoTRIgine 100 MG TAB PO SCH ×2 (08:47→20:18)
[2022-05-16] MEDS: NORETHINDRONE 5 MG TAB PO SCH (08:47)
[2022-05-16] MEDS: FERROUS SULFATE 325 MG TAB PO SCH ×2 (08:47→16:55)
[2022-05-16] MEDS: lamoTRIgine 25 MG TAB PO SCH ×2 (08:47→20:18)
[2022-05-16] MEDS: levETIRAcetam 500 MG in 0.9 % SODIUM CHLORIDE 100 ML IV SCH ×2 (08:49→20:19)
--- NOTE | 2022-05-16 11:56 | Magnetic Resonance Report ---
MR brain seizure wo/w con CLINICAL HISTORY: seizure TECHNIQUE: Multiplanar and multisequence MR images of the brain were obtained prior to and following administration of gadolinium contrast. Comparison: None available at the time of this dictation. FINDINGS: Extensive patient motion degrades the quality of this exam. There is suggestion of increased DWI signal at the right paramedian frontal lobe however no correspon ding ADC signal is seen to suggest true infarct. The white matter is unremarkable. The ventricular sy stem is normal in appearance. No mass or abnormal enhancement is seen. There is no mass effect or mid line shift. There is no evidence of acute intraparenchymal hemorrhage. No extra axial fluid collectio ns are seen. The corpus callosum, pituitary gland, and cerebellar tonsils appear grossly unremarkable . There is questionable asymmetric atrophy and minimal T2 hyperintensity in the left hippocampus. Flow voids of the major intracranial arterial vessels are identified. The imaged portions of the para nasal sinuses, mastoid air cells, and orbits are unremarkable. IMPRESSION: Highly limited exam. 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 ACT 112: Negative or not required by law. Electronically signed by: Dominic Ruffin M.D. 05/16/2022 11:54 AM
--- NOTE | 2022-05-16 15:19 | Hospitalist Progress Note ---
Date of Service May 16, 2022 Assessment & Plan (1) Myoclonus: (2) Seizure disorder: Plan: Admitting service notes with addendum Breakthrough seizure Underlying seizure disorder Patient presenting after a 30 min episode of generalized jerking/myoclonus without loss of consciousness History of seizure disorder, typically managed on Lamictal 250 mg BID S/p Keppra 1g IV in the ED, continue with Keppra 500mg IV BID Brain MRI Seizure precautions r/o toxic and metabolic causes, check Lamictal level Neurology consult, case discussed with Dr. Unger 05/16 Brain MRI: Highly limited exam. 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 Lamictal level: Pending On Keppra 500 mg IV twice daily Awaiting neurology service recommendation Status post mechanical fall Patient denies pain Continue to monitor One-to-one observation will be ordered (3) Cerebral palsy: Plan: w/ intellectual disability Ambulates with walker at baseline (4) DVT prophylaxis: Plan: SCDs Plan Anticipate discharge to home medically stable and cleared by cardiology service Admission and Anticipated Discharge Date Admission Date: May 15, 2022 Subjective Follow-up for breakthrough seizure, etc. As I was talking to patient's RN at the nurses station, certified pharmacy tech notified us that patient just fell She was seen walking to the commode and then falling on her buttocks Patient found sitting up on the floor Denies hip pain, back pain, head trauma Patient helped to get back to the bed States she feels fine overall denies headache, dizziness, nausea no chest pain, dyspnea, palpitations, dizziness Appetite is good No other symptoms Review of Systems Review of Systems: all noted and negative except for above Physical Exam Physical Exam: General- oriented x 1, not in distress, speaks in sentences with no effort or accessory muscle use Head-no head trauma noted Eyes- anicteric Neck- no JVD Lungs- clear breath sounds bilaterally, no crackles or wheezes Heart- normal rate, regular rhythm; no murmurs Abdomen- normal bowel sounds, nondistended, soft, nontender Extremities- no pretibial edema, no calf tenderness No hematoma, erythema noted Neuro- alert, oriented x 3; no gross focal neurologic deficits Skin- warm & dry Results & Data Results & Data ([facility]) Vital Signs (Past 12 Hours) Vital Signs Temp Pulse Pulse Resp BP Pulse Ox O2 Del Method 05/16/22 14:20 37 C 87 20 115/66 99 Room Air 05/16/22 11:30 36.8 C 77 16 110/68 100 Room Air 05/16/22 07:41 64 05/16/22 07:09 36.9 C 68 16 116/74 99 Room Air 05/16/22 04:35 36.8 C 80 16 114/73 98 Room Air all noted and reviewed including below
--- NOTE | 2022-05-16 16:13 | Neurology Consultation ---
Date of Consultation May 16, 2022 Assessment & Plan (1) Seizure disorder: Impression: The patient has history of seizure disorder. Reportedly, she was having episodes of staring and focal seizures, with myoclonus. Prior to admission, the patient had whole body myoclonic activity, without loss of consci ousness as reported. It is unusual to have bilateral convulsion without loss of consciousness. 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 However, the patient has established diagnosis of seizure disorder with recent episode, which should be considered a breakthrough seizure. Brain MRI did not show obvious acute pathology but T2 hyperintensities over right frontal and right temporal lobe cortex, which can be seen secondary to seizure activity. Recommendations: We will keep the patient on lamotrigine 250 mg twice a day. Serum trough lamotrigine level which is pending. We will add Keppra 500 mg twice a day to control seizure. EEG to investigate for epileptogenic activity. Repeat brain MRI in 1 to 3 months, sooner if needed. If the patient stays seizure-free, then she can be discharged home or jail tomorrow. Apparently, the patient was excepted to prison facility recently. Follow-up with her regular neurologist. (2) Cerebral palsy: (3) Intellectual disability: (4) Imbalance: Plan Thank you for the consultation. History of Present Illness Reason for Consultation: Seizures Requesting Physician: Marcelino Isaacs MD Attending Physician: Marcelino Isaacs MD History of Present Illness The patient is a 46-year-old female, with history of cerebral palsy and seizure disorder, who was brought to emergency department yesterday, after the patient had a prolonged episode of whole body tonic-clonic activity without loss of consciousness. According to family, the patient was eating breakfast yesterday with her mother. She was complaining of some headache, then began having myoclonic activity involving bilateral upper and lower extremities. However, she was able to answer questions, and did not lose consciousness, with some confusion as reported by family. There was no tongue biting or urinary incontinence. Initial episode lasted for almost 30 minutes, and he activated EMS. Emergency department, the patient had another episode similar to the first one, and received Ativan then Versed. The patient was loaded with levetiracetam and was admitted to the hospital. Since then, she has not had any seizure or seizure-like activities. Brain MRI showed no obvious acute pathology but some T2 hyperintensity over right temporal lobe cortex. The patient has been followed by [facility] neurology, and last visit was few days ago. He ordered blood work-up including a lamotrigine level, which is pending. According to family, the patient has been suffering from cerebral palsy related imbalance for a long time, and had had lower extremity surgeries. Recently, she was accepted to prison facility. She has intellectual disability, lives with her parents. She has been compliant on lamotrigine 250 mg twice a day. I have reviewed the patient's chart including imaging studies and visualized them personally. I have discussed the case with family and I have answered their questions in detail. Allergies Allergy/AdvReac Type Severity Reaction Status Date / Time No Known Allergies Allergy Verified 05/15/22 10:41 Home Medications Medication Instructions Recorded Confirmed Type lamotrigine 25 mg tablet 50 mg PO BID 90 days #360 tabs 04/12/21 05/15/22 Rx norethindrone acetate 5 mg tablet 5 mg PO DAILY 90 days #90 tabs 04/26/21 05/15/22 Rx lamotrigine 200 mg tablet 200 mg PO BID 05/15/22 05/15/22 History Patient History Medical History Cerebral palsy Intellectual disability Seizure disorder Present since . Surgical History Hx of knee surgery as child left knee surgery Family History Aunt Breast cancer Grandmother (Maternal) Colorectal cancer Hypertension Mother Hypertension Dyslipidemia Father Hypothyroidism Grandfather (Maternal) Hypertension Grandmother (Paternal) Renal dysfunction Denies family history of Ovarian cancer Prostate cancer Myocardial infarction Uterine cancer Social History Smoking Status: Never smoker Second Hand Exposure: No; Hx Alcohol Use: No Hx Substance Use: No Preferred Language: Singaporean Communication Ability: Impaired Visual Impairment: No Limitations Hearing Ability: Normal Plastic Technician Required: No marital status: Single Current Living Situation: Parent current occupational status: disabled How many Children do You have: 0 Feels Safe at Home: Yes Safety Concerns: Feels Safe At This Time Childhood Exposure to Second-Hand Smoke: No caffeine: No Dental Care, Regularly: Yes Physical Activity Frequency: Does not Exercise Seatbelt Use: always Sunscreen Use: Yes Assistive Devices: Walker Review of Systems Review of Systems: All systems reviewed & are unremarkable except as noted in HPI & below Physical Exam Physical Exam: General Examination: Constitutional: Well developed person in no acute distress. HEENT: Normal exam with inspection. No tongue or lip laceration. CV: Hearth rhythm is regular. Neck: Supple, no carotid bruits. Lungs: Non-labored and comfortable breathing. Abdomen: Soft, non-tender, non-distended. Skin: No rash or ecchymosis. Extremities: No edema or cyanosis NEUROLOGICAL EXAMINATION: Mental Status: Moderately severe intellectual disability. Patient is currently on her baseline. Cranial Nerves: II-XII are intact. No nystagmus. Funduscopy: Normal looking optic discs. Motor: The patient is able to move all extremities strongly without asymmetry. Tone: Increased tone in lower extremities. Sensory: Intact to all sensory modalities. Coordination: No dysmetria with FTN testing. Speech: Limited verbal output, which is fluent. She follows verbal commands appropriately. Gait: Unable to assess at this time. Reportedly, the patient has chronic ataxia. Musculoskeletal: Normal muscle bulk, no atrophy. Results & Data ([facility]) Vital Signs (Past 12 Hours) Vital Signs Temp Pulse Pulse Resp BP Pulse Ox O2 Del Method 05/16/22 14:20 37 C 87 20 115/66 99 Room Air 05/16/22 11:30 36.8 C 77 16 110/68 100 Room Air 05/16/22 07:41 64 05/16/22 07:09 36.9 C 68 16 116/74 99 Room Air 05/16/22 04:35 36.8 C 80 16 114/73 98 Room Air Laboratory Results Laboratory Results - last 24 hr 05/15/22 05/15/22 05/15/22 14:48 14:48 Unknown WBC RBC Hgb Hct MCV MCH MCHC RDW Std Deviation RDW Coeff of Becky Plt Count MPV Sodium Potassium Chloride Carbon Dioxide Anion Gap BUN Creatinine Est Cr Clr Drug Dosing Est GFR ( Amer) Est GFR (Non-Af Amer) BUN/Creatinine Ratio Glucose Calcium Iron 19 L Vitamin B12 222 25-OH Vitamin D Total 11.2 L Urine Color Yellow Urine Appearance Clear Urine pH 7.0 Ur Specific [place] 1.021 Urine Protein Negative Urine Glucose (UA) Negative Urine Ketones 1+ H Urine Blood Negative Urine Nitrite Negative Urine Bilirubin Negative Urine Urobilinogen Negative Ur Leukocyte Esterase 1+ H Urine WBC (Auto) 10-30 H Urine RBC (Auto) 0-4 U Hyaline Cast (Auto) 1-5 U Epithel Cells (Auto) 10-20 H Urine Bacteria (Auto) Negative 05/16/22 05/16/22 05:50 05:50 WBC 4.42 L RBC 3.99 Hgb 11.2 L Hct 33.7 L MCV 84.5 MCH 28.1 MCHC 33.2 RDW Std Deviation 44.4 RDW Coeff of Becky 14.4 Plt Count 260 MPV 10.2 Sodium 138 Potassium 3.9 Chloride 107 Carbon Dioxide 26 Anion Gap 5 BUN 11 Creatinine 0.67 Est Cr Clr Drug Dosing 108.2 Est GFR ( Amer) 122.2 Est GFR (Non-Af Amer) 105.4 BUN/Creatinine Ratio 16.4 Glucose 86 Calcium 8.4 L Iron Vitamin B12 25-OH Vitamin D Total Urine Color Urine Appearance Urine pH Ur Specific [place] Urine Protein Urine Glucose (UA) Urine Ketones Urine Blood Urine Nitrite Urine Bilirubin Urine Urobilinogen Ur Leukocyte Esterase Urine WBC (Auto) Urine RBC (Auto) U Hyaline Cast (Auto) U Epithel Cells (Auto) Urine Bacteria (Auto) Diagnostic Findings Chest X-Ray 05/15/22 09:54 XR chest 1V portable CLINICAL HISTORY: weakness TECHNIQUE: Single frontal radiograph of the chest was obtained. Comparison: Comparison is made to chest radiograph 03/03/2017 FINDINGS: No lines and tubes are seen. The cardiomediastinal silhouette is normal. The lungs are clear. No evidence of pleural effusion or pneumothorax. IMPRESSION: No acute chest disease. ACT 112: Negative or not required by law. Electronically signed by: Dominic Ruffin M.D. 05/15/2022 11:[address] 05/15/22 11:[address] DOSE: 1221.74 mGy.cm HISTORY: seizure TECHNIQUE: Multiaxial CT images of the cervical spine were performed and refor matted in the sagittal and coronal plane without the use of contrast. A dose lowering technique was utilized adhering to the principles of ALARA. COMPARISON: Cervical spine CT 07/15/2013. FINDINGS: No fractures. No subluxation. Prevertebral soft tissues and the C1-C2 interval are intact. No pneumothorax. A few subcentimeter thyroid nodules measuring up to 9 mm. These appear stable and do not meet CT criteria for follow-up. IMPRESSION: No fractures within the cervical spine. ACT 112: Negative or not required by law. Electronically signed by: Mitchell Parker M.D. 05/15/2022 12:[address] 05/15/22 11:10 CT SCAN OF THE BRAIN WITHOUT IV CONTRAST CLINICAL HISTORY: Seizure. COMPARISON STUDY: CT of the brain dated 03/03/2017. TECHNIQUE: Unenhanced axial CT scan of the brain is performed from the vertex to the skull base. A dose lowering technique was utilized adhering to the principles of ALARA. The patient was scanned twice due to motion artifact. FINDINGS: Brain parenchyma: The brain parenchyma is normal in appearance. A prominent perivascular space is again seen on the left. There is no hemorrhage, mass effect, or evidence of acute territorial ischemia by CT criteria. Gonzalez-white matter differentiation is preserved. No extra-axial fluid collection is seen. Ventricles, sulci, cisterns: Normal in configuration. Intracranial vasculature: The visualized intracranial vasculature at the skull base is normal in appearance. Calvarium: Unremarkable. Sinuses and mastoids: The visualized paranasal sinuses are clear. The mastoid air cells are well pneumatized. Orbits: The bony orbits are grossly intact. IMPRESSION: No acute intracranial abnormality. ACT 112: Negative or not required by law. Electronically signed by: Gunnar Nazario M.D. 05/15/2022 12:28 PM Brain MRI 05/15/22 14:23 MR brain seizure wo/w con CLINICAL HISTORY: seizure TECHNIQUE: Multiplanar and multisequence MR images of the brain were obtained prior to and following administration of gadolinium contrast. Comparison: None available at the time of this dictation. FINDINGS: Extensive patient motion degrades the quality of this exam. There is suggestion of increased DWI signal at the right paramedian frontal lobe however no corresponding ADC signal is seen to suggest true infarct. The white matter is unremarkable. The ventricular system is normal in appearance. No mass or abnormal enhancement is seen. There is no mass effect or midline shift. There is no evidence of acute intraparenchymal hemorrhage. No extra axial fluid collections are seen. The corpus callosum, pituitary gland, and cerebellar tonsils appear grossly unremarkable. There is questionable asymmetric atrophy an d minimal T2 hyperintensity in the left hippocampus. Flow voids of the major intracranial arterial vessels are identified. The imaged portions of the paranasal sinuses, mastoid air cells, and orbits are unremarkable. IMPRESSION: Highly limited exam. 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 ACT 112: Negative or not required by law. Electronically signed by: Dominic Ruffin M.D. 05/16/2022 11:54 AM
[2022-05-16] MEDS: ACETAMINOPHEN 325 MG TAB PO PRN (23:41)
[2022-05-17] MEDS: NORETHINDRONE 5 MG TAB PO SCH (09:05)
[2022-05-17] MEDS: FERROUS SULFATE 325 MG TAB PO SCH ×2 (09:05→16:31)
[2022-05-17] MEDS: lamoTRIgine 25 MG TAB PO SCH ×2 (09:05→20:56)
[2022-05-17] MEDS: lamoTRIgine 100 MG TAB PO SCH ×2 (09:05→20:56)
[2022-05-17] MEDS: levETIRAcetam 500 MG TAB PO SCH ×2 (09:37→20:57)
--- NOTE | 2022-05-17 15:11 | Hospitalist Progress Note ---
Date of Service May 17, 2022 Assessment & Plan (1) Myoclonus: (2) Seizure disorder: Plan: Admitting service notes with addendum BREAKTHROUGH SEIZURE UNDERLYING SEIZURE DISORDER Patient presenting after a 30 min episode of generalized jerking/myoclonus without loss of consciousness History of seizure disorder, typically managed on Lamictal 250 mg BID S/p Keppra 1g IV in the ED, continue with Keppra 500mg IV BID Brain MRI Seizure precautions r/o toxic and metabolic causes, check Lamictal level Neurology consult, case discussed with Dr. Unger 05/16 Brain MRI: Highly limited exam. 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 Lamictal level: Pending On Keppra 500 mg IV twice daily 05/17 No recurrence of seizures Position from IV to p.o. Keppra 500 mg twice daily Appreciate neurology service recommendations STATUS POST MECHANICAL FALL Patient denies pain No visible signs of injuries Continue to monitor One-to-one observation will be ordered (3) Cerebral palsy: Plan: w/ intellectual disability Ambulates with walker at baseline (4) DVT prophylaxis: Plan: SCDs Plan Disposition Awaiting placement Admission and Anticipated Discharge Date Admission Date: May 15, 2022 Subjective Follow-up for breakthrough seizure, etc. Discussed with RN currently, no acute issues overnight No recurrence of seizures Seen with POLICY SPECIALIST at the bedside as one-to-one observation in place next Seen sitting up in bed, awake and alert, holding reports word search book States that she feels fine overall Has some pain over IV site on her arms, but otherwise denies pain in her hips, buttocks, back Denies headache, shortness of breath, chest pain No other symptoms No other issues Review of Systems Review of Systems: all noted and negative except for above Physical Exam Physical Exam: General- oriented x2, not in distress, speaks in sentences with no effort or accessory muscle use Eyes- anicteric Neck- no JVD Lungs- clear breath sounds bilaterally, no crackles or wheezing Heart- normal rate, regular rhythm; no murmurs Abdomen- normal bowel sounds, nondistended, soft, nontender Extremities- no pretibial edema, no calf tenderness No hematoma, erythema on the hips, legs, knees next Neuro- alert, oriented x 3; no gross focal neurologic deficits Skin- warm & dry Results & Data Results & Data ([facility]) Vital Signs (Past 12 Hours) Vital Signs Temp Pulse Pulse Pulse Resp BP Pulse Ox 05/17/22 11:09 37.1 C 94 H 20 97/59 L 96 05/17/22 09:42 67 05/17/22 07:41 36.6 C 80 18 105/59 L 98 05/17/22 04:39 36.9 C 77 16 107/70 100 O2 Del Method 05/17/22 11:09 Room Air 05/17/22 09:42 05/17/22 07:41 Room Air 05/17/22 04:39 Room Air all noted and reviewed including below
--- NOTE | 2022-05-17 15:17 | Neurology Progress Note ---
Date of Service May 17, 2022 Assessment & Plan (1) Seizure disorder: Plan: Impression: The patient has history of seizure disorder. Reportedly, she was having episodes of staring and focal seizures, with myoclonus. Prior to admission, the patient had whole body myoclonic activity, without loss of consciousness as reported. It is unusual to have bilateral convulsion without loss of consciousness. 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 However, the patient has established diagnosis of seizure disorder with recent episode, which should be considered a breakthrough seizure. Brain MRI did not show obvious acute pathology but T2 hyperintensities over right frontal and right temporal lobe cortex, which can be seen secondary to seizure activity. No seizures since the admission. SNF placement is pending. Recommendations: We will keep the patient on lamotrigine 250 mg twice a day. Serum trough lamotrigine level which is pending. Continue on Keppra 500 mg twice a day to control seizure. EEG to investigate for epileptogenic activity. Repeat brain MRI in 1 to 3 months, sooner if needed. If the patient is neurologically stable to discharge. Apparently, the patient was excepted to shelter facility recently. Follow-up with her regular neurologist. (2) Cerebral palsy: (3) Intellectual disability: (4) Imbalance: Admission and Anticipated Discharge Date Admission Date: May 15, 2022 Subjective No seizures since admission. The patient tolerates Keppra and lamotrigine well. EEG and placement are pending. The patient slept well. She eats without difficulty. Review of Systems Review of Systems: All systems reviewed & are unremarkable except as noted in Subjective Physical Exam Physical Exam: General Examination: Constitutional: Well developed person in no acute distress. HEENT: Normal exam with inspection. No tongue or lip laceration. CV: Hearth rhythm is regular. Neck: Supple, no carotid bruits. Lungs: Non-labored and comfortable breathing. Abdomen: Soft, non-tender, non-distended. Skin: No rash or ecchymosis. Extremities: No edema or cyanosis NEUROLOGICAL EXAMINATION: Mental Status: Moderately severe intellectual disability. Patient is currently on her baseline. Cranial Nerves: II-XII are intact. No nystagmus. Funduscopy: Normal looking optic discs. Motor: The patient is able to move all extremities strongly without asymmetry. Tone: Increased tone in lower extremities. Sensory: Intact to all sensory modalities. Coordination: No dysmetria with FTN testing. Speech: Limited verbal output, which is fluent. She follows verbal commands appropriately. Gait: Unable to assess at this time. Reportedly, the patient has chronic ataxi a. Musculoskeletal: Normal muscle bulk, no atrophy. Results & Data ([facility]) Vital Signs (Past 12 Hours) Vital Signs Temp Pulse Pulse Pulse Resp BP Pulse Ox 05/17/22 11:09 37.1 C 94 H 20 97/59 L 96 05/17/22 09:42 67 05/17/22 07:41 36.6 C 80 18 105/59 L 98 05/17/22 04:39 36.9 C 77 16 107/70 100 O2 Del Method 05/17/22 11:09 Room Air 05/17/22 09:42 05/17/22 07:41 Room Air 05/17/22 04:39 Room Air Diagnostic Findings Chest X-Ray 05/15/22 09:54 XR chest 1V portable CLINICAL HISTORY: weakness TECHNIQUE: Single frontal radiograph of the chest was obtained. Comparison: Comparison is made to chest radiograph 03/03/2017 FINDINGS: No lines and tubes are seen. The cardiomediastinal silhouette is normal. The lungs are clear. No evidence of pleural effusion or pneumothorax. IMPRESSION: No acute chest disease. ACT 112: Negative or not required by law. Electronically signed by: Dominic Ruffin M.D. 05/15/2022 11:[address] 05/15/22 11:[address] DOSE: 1221.74 mGy.cm HISTORY: seizure TECHNIQUE: Multiaxial CT images of the cervical spine were performed and reformatted in the sagittal and coronal plane without the use of contrast. A dose lowering technique was utilized adhering to the principles of ALARA. COMPARISON: Cervical spine CT 07/15/2013. FINDINGS: No fractures. No subluxation. Prevertebral soft tissues and the C1-C2 interval are intact. No pneumothorax. A few subcentimeter thyroid nodules measuring up to 9 mm. These appear stable and do not meet CT criteria for follow-up. IMPRESSION: No fractures within the cervical spine. ACT 112: Negative or not required by law. Electronically signed by: Mitchell Parker M.D. 05/15/2022 12:[address] 05/15/22 11:10 CT SCAN OF THE BRAIN WITHOUT IV CONTRAST CLINICAL HISTORY: Seizure. COMPARISON STUDY: CT of the brain dated 03/03/2017. TECHNIQUE: Unenhanced axial CT scan of the brain is performed from the vertex to the skull base. A dose lowering technique was utilized adhering to the principles of ALARA. The patient was scanned twice due to motion artifact. FINDINGS: Brain parenchyma: The brain parenchyma is normal in appearance. A prominent perivascular space is again seen on the left. There is no hemorrhage, mass effect, or evidence of acute territorial ischemia by CT criteria. Gonzalez-white matter differentiation is preserved. No extra-axial fluid collection is seen. Ventricles, sulci, cisterns: Normal in configuration. Intracranial vasculature: The visualized intracranial vasculature at the skull base is normal in appearance. Calvarium: Unremarkable. Sinuses and mastoids: The visualized paranasal sinuses are clear. The mastoid air cells are well pneumatized. Orbits: The bony orbits are grossly intact. IMPRESSION: No acute intracranial abnormality. ACT 112: Negative or not required by law. Electronically signed by: Gunnar Nazario M.D. 05/15/2022 12:28 PM Brain MRI 05/15/22 14:23 MR brain seizure wo/w con CLINICAL HISTORY: seizure TECHNIQUE: Multiplanar and multisequence MR images of the brain were obtained prior to and following administration of gadolinium contrast. Comparison: None available at the time of this dictation. FINDINGS: Extensive patient motion degrades the quality of this exam. There is suggestion of increased DWI signal at the right paramedian frontal lobe however no corresponding ADC signal is seen to suggest true infarct. The white matter is unremarkable. The ventricular system is normal in appearance. No mass or abnormal enhancement is seen. There is no mass effect or midline shift. There is no evidence of acute intraparenchymal hemorrhage. No extra axial fluid collections are seen. The corpus callosum, pituitary gland, and cerebellar tonsils appear grossly unremarkable. There is questionable asymmetric atrophy and minimal T2 hyperintensity in the left hippocampus. Flow voids of the major intracranial arterial vessels are identified. The imaged portions of the paranasal sinuses, mastoid air cells, and orbits are unremarkable. IMPRESSION: Highly limited exam. 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 ACT 112: Negative or not required by law. Electronically signed by: Dominic Ruffin M.D. 05/16/2022 11:54 AM
[2022-05-18] MEDS: NORETHINDRONE 5 MG TAB PO SCH (08:49)
[2022-05-18] MEDS: levETIRAcetam 500 MG TAB PO SCH ×2 (08:49→21:05)
[2022-05-18] MEDS: FERROUS SULFATE 325 MG TAB PO SCH ×2 (08:49→16:28)
[2022-05-18] MEDS: lamoTRIgine 25 MG TAB PO SCH ×2 (08:49→21:05)
[2022-05-18] MEDS: lamoTRIgine 100 MG TAB PO SCH ×2 (08:50→21:05)
--- NOTE | 2022-05-18 19:22 | Hospitalist Progress Note ---
Date of Service May 18, 2022 Assessment & Plan (1) Myoclonus: (2) Seizure disorder: Plan: Admitting service notes with addendum BREAKTHROUGH SEIZURE UNDERLYING SEIZURE DISORDER Patient presenting after a 30 min episode of generalized jerking/myoclonus without loss of consciousness History of seizure disorder, typically managed on Lamictal 250 mg BID S/p Keppra 1g IV in the ED, continue with Keppra 500mg IV BID Brain MRI Seizure precautions r/o toxic and metabolic causes, check Lamictal level Neurology consult, case discussed with Dr. Unger 05/16 Brain MRI: Highly limited exam. 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 Lamictal level: Pending On Keppra 500 mg IV twice daily 05/17 No recurrence of seizures Position from IV to p.o. Keppra 500 mg twice daily Appreciate neurology service recommendations STATUS POST MECHANICAL FALL Patient denies pain No visible signs of injuries Continue to monitor One-to-one observation will be ordered (3) Cerebral palsy: Plan: w/ intellectual disability Ambulates with walker at baseline (4) DVT prophylaxis: Plan: SCDs Plan Disposition Awaiting placement Admission and Anticipated Discharge Date Admission Date: May 15, 2022 Results & Data Results & Data ([facility]) Vital Signs (Past 12 Hours) Vital Signs Temp Pulse Resp BP Pulse Ox O2 Del Method 05/18/22 19:12 36.8 C 83 17 104/65 98 Room Air 05/18/22 15:36 37.2 C 86 16 103/60 99 Room Air
[2022-05-18] MEDS: ACETAMINOPHEN 325 MG TAB PO PRN (23:39)
[2022-05-19] MEDS: lamoTRIgine 100 MG TAB PO SCH ×2 (08:58→20:34)
[2022-05-19] MEDS: FERROUS SULFATE 325 MG TAB PO SCH ×2 (08:58→18:11)
[2022-05-19] MEDS: NORETHINDRONE 5 MG TAB PO SCH (08:59)
[2022-05-19] MEDS: levETIRAcetam 500 MG TAB PO SCH ×2 (08:59→20:34)
[2022-05-19] MEDS: lamoTRIgine 25 MG TAB PO SCH ×2 (08:59→20:34)
--- NOTE | 2022-05-19 13:09 | Electroencephalogram ---
EEG Procedure Note Date of Service May 19, 2022 Start / End Times Start Time: 10:36 End Time: 10:57 Referring Physician Kristin Sung MD History Seizure disorder, cerebral palsy Home Medication List Medication Instructions Recorded Confirmed Type lamotrigine 25 mg tablet 50 mg PO BID 90 days #360 tabs 04/12/21 05/15/22 Rx norethindrone acetate 5 mg tablet 5 mg PO DAILY 90 days #90 tabs 04/26/21 05/15/22 Rx lamotrigine 200 mg tablet 200 mg PO BID 05/15/22 05/15/22 History Inpatient Medication List Acetaminophen (Acetaminophen 325 Mg Tab) 650 mg PO Q4H PRN PRN Reason: Pain or Fever Stop: 06/14/22 15:14 Last Admin: 05/18/22 23:39 Dose: 650 mg Documented By: Admin: 05/16/22 23:41 Dose: 650 mg Documented By: KINDRA Ergocalciferol (Ergocalciferol 50,000 Units 1250 Mcg Cap) 50,000 units PO Q7D MILADYS Stop: 06/14/22 18:59 Last Admin: 05/15/22 20:11 Dose: 50,000 units Documented By: KINDRA Ferrous Sulfate (Ferrous Sulfate 325 Mg Tab) 325 mg PO BIDM MILADYS Stop: 06/15/22 07:59 Last Admin: 05/19/22 08:58 Dose: 325 mg Documented By: Admin: 05/18/22 16:28 Dose: 325 mg Documented By: Admin: 05/18/22 08:49 Dose: 325 mg Documented By: Admin: 05/17/22 16:31 Dose: 325 mg Documented By: Admin: 05/17/22 09:05 Dose: 325 mg Documented By: Admin: 05/16/22 16:55 Dose: 325 mg Documented By: Admin: 05/16/22 08:47 Dose: 325 mg Documented By: Lamotrigine (Lamotrigine 100 Mg Tab) 200 mg PO BID MILADYS Stop: 06/14/22 20:59 Last Admin: 05/19/22 08:58 Dose: 200 mg Documented By: Admin: 05/18/22 21:05 Dose: 200 mg Documented By: Admin: 05/18/22 08:50 Dose: 200 mg Documented By: Admin: 05/17/22 20:56 Dose: 200 mg Documented By: Admin: 05/17/22 09:05 Dose: 200 mg Documented By: Admin: 05/16/22 20:18 Dose: 200 mg Documented By: Admin: 05/16/22 08:47 Dose: 200 mg Documented By: Admin: 05/15/22 20:11 Dose: 200 mg Documented By: KINDRA Lamotrigine (Lamotrigine 25 Mg Tab) 50 mg PO BID MILADYS Stop: 06/14/22 20:59 Last Admin: 05/19/22 08:59 Dose: 50 mg Documented By: Admin: 05/18/22 21:05 Dose: 50 mg Documented By: Admin: 05/18/22 08:49 Dose: 50 mg Documented By: Admin: 05/17/22 20:56 Dose: 50 mg Documented By: Admin: 05/17/22 09:05 Dose: 50 mg Documented By: Admin: 05/16/22 20:18 Dose: 50 mg Documented By: Admin: 05/16/22 08:47 Dose: 50 mg Documented By: Admin: 05/15/22 20:11 Dose: 50 mg Documented By: KINDRA Levetiracetam (Levetiracetam 500 Mg Tab) 500 mg PO BID MILADYS Stop: 06/16/22 08:59 Last Admin: 05/19/22 08:59 Dose: 500 mg Documented By: Admin: 05/18/22 21:05 Dose: 500 mg Documented By: Admin: 05/18/22 08:49 Dose: 500 mg Documented By: Admin: 05/17/22 20:57 Dose: 500 mg Documented By: Admin: 05/17/22 09:37 Dose: 500 mg Documented By: SACHA Norethindrone (Norethindrone 5 Mg Tab) 5 mg PO DAILY MILADYS Stop: 06/15/22 08:59 Last Admin: 05/19/22 08:59 Dose: 5 mg Documented By: Admin: 05/18/22 08:49 Dose: 5 mg Documented By: Admin: 05/17/22 09:05 Dose: 5 mg Documented By: Admin: 05/16/22 08:47 Dose: 5 mg Documented By: Discontinued Medications Gadobutrol (Gadobutrol 65ml Vial) 7.3 ml IV ONCE ONE Stop: 05/15/22 18:44 Last Admin: 05/15/22 18:45 Dose: 7.3 ml Documented By: ERIKA Sodium Chloride (Nss) 500 mls @ 999 mls/hr IV .Q31M MILADYS Stop: 05/15/22 10:30 Last Infusion: 05/15/22 10:49 Dose: 0 mls/hr Documented By: Admin: 05/15/22 10:12 Dose: 999 mls/hr Documented By: MALLORY Levetiracetam 1,000 mg/ Sodium (Chloride) 110 mls @ 440 mls/hr IV NOW STA Stop: 05/15/22 10:08 Last Infusion: 05/15/22 10:26 Dose: 0 mls/hr Documented By: Admin: 05/15/22 10:11 Dose: 440 mls/hr Documented By: MALLORY Sodium Chloride (Nss 1000ml) 1,000 mls @ 999 mls/hr IV .Q1H1M ONE Stop: 05/15/22 12:10 Last Infusion: 05/15/22 12:50 Dose: 0 mls/hr Documented By: Admin: 05/15/22 11:37 Dose: 999 mls/hr Documented By: HAIDER Levetiracetam 1,000 mg/ Sodium (Chloride) 110 mls @ 440 mls/hr IV NOW STA Stop: 05/15/22 11:24 Last Admin: 05/15/22 11:25 Dose: Not Given Documented By: HAIDER Levetiracetam 500 mg/ Sodium (Chloride) 105 mls @ 440 mls/hr IV BID MILADYS Stop: 06/14/22 20:59 Last Infusion: 05/16/22 20:44 Dose: 0 mls/hr Documented By: Admin: 05/16/22 20:19 Dose: 440 mls/hr Documented By: AMMarquis Infusion: 05/16/22 09:18 Dose: 0 mls/hr Documented By: Admin: 05/16/22 08:49 Dose: 440 mls/hr Documented By: Infusion: 05/15/22 21:39 Dose: 0 mls/hr Documented By: Admin: 11/17/22 20:11 Dose: 440 mls/hr Documented By: KINDRA Description This is a 21 electrode EEG with a single channel dedicated to limited EKG. The electrodes were placed in accordance with the International 10-20 system. Interpretation During restful wakefulness, there is 20 to 30 V, 9 Hz posterior activity, attenuates with eye opening bilaterally. Background activity shows good organization without focal slowing or asymmetry. Photic stimulations induced posterior driving responses bilaterally and symmetrically. Hyperventilation is not attempted during the study. There are no electrographic seizures, or epileptogenic discharges. There is no sleep-related pattern. Impression: This EEG, recorded in wakefulness only, is normal. There is no electrographic seizures or epileptogenic discharge. Clinical Correlation Normal interictal routine EEG does not rule out seizure disorder. Clinical correlation is recommended.
[2022-05-19] MEDS: ACETAMINOPHEN 325 MG TAB PO PRN ×2 (14:36→18:41)
--- NOTE | 2022-05-19 14:57 | Neurology Progress Note ---
Date of Service May 19, 2022 Assessment & Plan (1) Seizure disorder: Plan: Impression: The patient has history of seizure disorder. Reportedly, she was having episodes of staring and focal seizures, with myoclonus. Prior to admission, the patient had whole body myoclonic activity, without loss of consciousness as reported. It is unusual to have bilateral convulsion without loss of consciousness. 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 However, the patient has established diagnosis of seizure disorder with recent episode, which should be considered a breakthrough seizure. Brain MRI did not show obvious acute pathology but T2 hyperintensities over right frontal and right temporal lobe cortex, which can be seen secondary to seizure activity. No seizures since the admission. SNF placement is pending. EEG is unremarkable. Recommendations: We will keep the patient on lamotrigine 250 mg twice a day. Serum trough lamotrigine level which is pending. Continue on Keppra 500 mg twice a day to control seizure. Repeat brain MRI in 1 to 3 months, sooner if needed. The patient is neurologically stable to discharge. Apparently, the patient was excepted to halfway facility recently. Follow-up with her regular neurologist. (2) Cerebral palsy: (3) Intellectual disability: (4) Imbalance: Plan We will sign off. Admission and Anticipated Discharge Date Admission Date: May 15, 2022 Subjective No seizures since admission. The patient tolerates Keppra and lamotrigine well. EEG is unremarkable. The patient eats and sleeps well.Placement is pending. Review of Systems Review of Systems: All systems reviewed & are unremarkable except as noted in Subjective Physical Exam Physical Exam: General Examination: Constitutional: Well developed person in no acute distress. HEENT: Normal exam with inspection. No tongue or lip laceration. CV: Hearth rhythm is regular. Neck: Supple, no carotid bruits. Lungs: Non-labored and comfortable breathing. Abdomen: Soft, non-tender, non-distended. Skin: No rash or ecchymosis. Extremities: No edema or cyanosis NEUROLOGICAL EXAMINATION: Mental Status: Moderately severe intellectual disability. Patient is currently on her baseline. Cranial Nerves: II-XII are intact. No nystagmus. Funduscopy: Normal looking optic discs. Motor: The patient is able to move all extremities strongly without asymmetry. Tone: Increased tone in lower extremities. Sensory: Intact to all sensory modalities. Coordination: No dysmetria with FTN testing. Speech: Limited verbal output, which is fluent. She follows verbal commands appropriately. Gait: Unable to assess at this time. Reportedly, the patient has chronic ataxia. Musculoskeletal: Normal muscle bulk, no atrophy. Results & Data ([facility]) Vital Signs (Past 12 Hours) Vital Signs Temp Pulse Resp BP Pulse Ox O2 Del Method 05/19/22 07:14 37.4 C 81 16 106/65 96 Room Air Diagnostic Findings Chest X-Ray 05/15/22 09:54 XR chest 1V portable CLINICAL HISTORY: weakness TECHNIQUE: Single frontal radiograph of the chest was obtained. Comparison: Comparison is made to chest radiograph 03/03/2017 FINDINGS: No lines and tubes are seen. The cardiomediastinal silhouette is normal. The lungs are clear. No evidence of pleural effusion or pneumothorax. IMPRESSION: No acute chest disease. ACT 112: Negative or not required by law. Electronically signed by: Dominic Ruffin M.D. 05/15/2022 11:[address] 05/15/22 11:[address] DOSE: 1221.74 mGy.cm HISTORY: seizure TECHNIQUE: Multiaxial CT images of the cervical spine were performed and reformatted in the sagittal and coronal plane without the use of contrast. A dose lowering technique was utilized adhering to the principles of ALARA. COMPARISON: Cervical spine CT 07/15/2013. FINDINGS: No fractures. No subluxation. Prevertebral soft tissues and the C1-C2 interval are intact. No pneumothorax. A few subcentimeter thyroid nodules measuring up to 9 mm. These appear stable and do not meet CT criteria for follow-up. IMPRESSION: No fractures within the cervical spine. ACT 112: Negative or not required by law. Electronically signed by: Mitchell Parker M.D. 05/15/2022 12:[address] 05/15/22 11:10 CT SCAN OF THE BRAIN WITHOUT IV CONTRAST CLINICAL HISTORY: Seizure. COMPARISON STUDY: CT of the brain dated 03/03/2017. TECHNIQUE: Unenhanced axial CT scan of the brain is performed from the vertex to the skull base. A dose lowering technique was utilized adhering to the principles of ALARA. The patient was scanned twice due to motion artifact. FINDINGS: Brain parenchyma: The brain parenchyma is normal in appearance. A prominent perivascular space is again seen on the left. There is no hemorrhage, mass effect, or evidence of acute territorial ischemia by CT criteria. Gonzalez-white matter differentiation is preserved. No extra-axial fluid collection is seen. Ventricles, sulci, cisterns: Normal in configuration. Intracranial vasculature: The visualized intracranial vasculature at the skull base is normal in appearance. Calvarium: Unremarkable. Sinuses and mastoids: The visualized paranasal sinuses are clear. The mastoid air cells are well pneumatized. Orbits: The bony orbits are grossly intact. IMPRESSION: No acute intracranial abnormality. ACT 112: Negative or not required by law. Electronically signed by: Gunnar Nazario M.D. 05/15/2022 12:28 PM Brain MRI 05/15/22 14:23 MR brain seizure wo/w con CLINICAL HISTORY: seizure TECHNIQUE: Multiplanar and multisequence MR images of the brain were obtained prior to and following administration of gadolinium contrast. Comparison: None available at the time of this dictation. FINDINGS: Extensive patient motion degrades the quality of this exam. There is suggestion of increased DWI signal at the right paramedian frontal lobe however no corresponding ADC signal is seen to suggest true infarct. The white matter is unremarkable. The ventricular system is normal in appearance. No mass or abnormal enhancement is seen. There is no mass effect or midline shift. There is no evidence of acute intraparenchymal hemorrhage. No extra axial fluid collections are seen. The corpus callosum, pituitary gland, and cerebellar tonsils appear grossly unremarkable. There is questionable asymmetric atrophy and minimal T2 hyperintensity in the left hippocampus. Flow voids of the major intracranial arterial vessels are identified. The imaged portions of the paranasal sinuses, mastoid air cells, and orbits are unremarkable. IMPRESSION: Highly limited exam. 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 ACT 112: Negative or not required by law. Electronically signed by: Dominic Ruffin M.D. 05/16/2022 11:54 AM
[2022-05-20] MEDS: ACETAMINOPHEN 325 MG TAB PO PRN ×2 (01:18→09:04)
[2022-05-20] MEDS: FERROUS SULFATE 325 MG TAB PO SCH ×2 (08:39→20:28)
[2022-05-20] MEDS: lamoTRIgine 100 MG TAB PO SCH ×2 (08:39→20:28)
[2022-05-20] MEDS: levETIRAcetam 500 MG TAB PO SCH ×2 (08:40→20:28)
[2022-05-20] MEDS: lamoTRIgine 25 MG TAB PO SCH ×2 (08:40→20:27)
[2022-05-20] MEDS: NORETHINDRONE 5 MG TAB PO SCH (08:42)
[2022-05-20] MEDS ORDERED: ACETAMINOPHEN 325 MG TAB PO ONE (10:57)
--- NOTE | 2022-05-20 15:51 | XRay Report ---
XR hip RT 2V w pelvis CLINICAL HISTORY: r buttock pain s/p fall TECHNIQUE: 2 views of the right hip and single frontal view of the pelvis were obtained. Comparison: None available at the time of this dictation. FINDINGS: There is no evidence of an acute fracture. Joint spaces are well-preserved. No soft tissue abnormalit y is seen. IMPRESSION: No evidence of acute osseous injury. ACT 112: Negative or not required by law. Electronically signed by: Dominic Ruffin M.D. 05/20/2022 3:50 PM
--- NOTE | 2022-05-20 16:24 | Hospitalist Progress Note ---
Date of Service May 20, 2022 Assessment & Plan (1) Myoclonus: (2) Seizure disorder: Plan: Admitting service notes with addendum BREAKTHROUGH SEIZURE UNDERLYING SEIZURE DISORDER Patient presenting after a 30 min episode of generalized jerking/myoclonus without loss of consciousness History of seizure disorder, typically managed on Lamictal 250 mg BID S/p Keppra 1g IV in the ED, continue with Keppra 500mg IV BID Brain MRI: Highly limited exam. 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 Lamictal level: Pending Given Keppra 500 mg IV twice daily 05/20 No recurrence of seizures Tolerating Keppra 500 mg p.o. twice daily Appreciate neurology service recommendations STATUS POST MECHANICAL FALL Reports right buttock pain to the Right hip/pelvic x-ray: There is no evidence of an acute fracture. Joint spaces are well-preserved. No soft tissue abnormality is seen. IMPRESSION: No evidence of acute osseous injury. Tylenol as needed, ice pack Continue with one-to-one observation (3) Cerebral palsy: Plan: w/ intellectual disability Ambulates with walker at baseline (4) DVT prophylaxis: Plan: SCDs Plan Disposition Awaiting placement Admission and Anticipated Discharge Date Admission Date: May 15, 2022 Subjective Follow-up for breakthrough seizure, etc Seen resting in bed, with MEMBERSHIP CORRESPONDENT at the bedside throughout whole encounter Patient reporting right buttock pain Denies problems with ambulation No other pain in her body no chest pain, dyspnea, palpitations, dizziness No other symptoms Review of Systems Review of Systems: all noted and negative except for above Physical Exam Physical Exam: General- oriented x 3, not in distress, speaks in sentences with no effort or accessory muscle use Eyes- anicteric Neck- no JVD Lungs- clear breath sounds bilaterally, no crackles or wheezing Heart- normal rate, regular rhythm; no murmurs Abdomen- normal bowel sounds, nondistended, soft, nontender Right buttock- no hematoma, erythema, nontender Extremities- no pretibial edema, no calf tenderness Neuro- alert, oriented x 3; no gross focal neurologic deficits Skin- warm & dry Results & Data Results & Data ([facility]) Vital Signs (Past 12 Hours) Vital Signs Temp Pulse Resp BP BP Pulse Ox O2 Del Method 05/20/22 14:28 37.1 C 79 16 100/62 97 Room Air 05/20/22 06:28 36.9 C 72 16 114/74 98 Room Air all noted and reviewed including below
[2022-05-21] MEDS: lamoTRIgine 100 MG TAB PO SCH ×2 (08:02→19:54)
[2022-05-21] MEDS: levETIRAcetam 500 MG TAB PO SCH ×2 (08:03→19:54)
[2022-05-21] MEDS: NORETHINDRONE 5 MG TAB PO SCH (08:03)
[2022-05-21] MEDS: FERROUS SULFATE 325 MG TAB PO SCH ×2 (08:03→16:43)
[2022-05-21] MEDS: lamoTRIgine 25 MG TAB PO SCH ×2 (08:03→19:54)
--- NOTE | 2022-05-21 14:51 | Hospitalist Progress Note ---
Date of Service May 21, 2022 Assessment & Plan (1) Myoclonus: (2) Seizure disorder: Plan: BREAKTHROUGH SEIZURE Patient presenting after a 30 min episode of generalized jerking/myoclonus without loss of consciousness History of seizure disorder, typically managed on Lamictal 250 mg BID S/p Keppra 1g IV in the ED, received Keppra 500mg IV BID and transition to Keppra 500 mg PO BID Lamictal level noted be therapeutic at 10.2 Continue RAILROAD DESIGN CONSULTANT Lamictal dosing Neurology consulted, appreciate input Brain MRI: Highly limited exam. 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ICAL FALL Reported right buttock pain Right hip/pelvic x-ray:No evidence of acute osseous injury Tylenol as needed, ice pack Continue with one-to-one observation (3) Cerebral palsy: Plan: w/ intellectual disability Ambulates with walker at baseline (4) DVT prophylaxis: Plan: SCDs Dispo -medically stable for discharge, awaiting placement Admission and Anticipated Discharge Date Admission Date: May 15, 2022 Subjective Follow-up for myoclonus, breakthrough seizure. Patient seen and examined. Sitting at the edge of the bed, no acute distress. Offers no complaints, patient is pleasant. PICKED EDGE SEWING MACHINE OPERATOR at bedside reports that patient uses call rahman appropriately. Patient denies chest pain shortness of breath. No abdominal pain or nausea. Review of Systems Review of Systems: ROS per HPI, all other systems reviewed and negative Physical Exam Constitutional: WD/WN, vitals as above Respiratory: normal respiratory effort, lungs clear to auscultation Cardiovascular: Rate/Rhythm: regular rate and regular rhythm Gastrointestinal (Abdomen): Percussion/Palpation: abdomen soft; abdomen nontender Skin: no rashes, warm and dry Neurologic: no focal motor deficits Psychiatric: Orientation: alert, oriented to person and oriented to place; + not oriented to time Insight: + limited insight Underlying intellectual disability Results & Data Results & Data ([place]) Vital Signs (Past 12 Hours) Vital Signs Temp Pulse Resp BP Pulse Ox O2 Del Method 05/21/22 12:12 36.7 C 86 16 93/58 L 97 Room Air
[2022-05-22] MEDS: lamoTRIgine 100 MG TAB PO SCH ×2 (08:21→21:01)
[2022-05-22] MEDS: ACETAMINOPHEN 325 MG TAB PO PRN (08:21)
[2022-05-22] MEDS: lamoTRIgine 25 MG TAB PO SCH ×2 (08:22→21:00)
[2022-05-22] MEDS: NORETHINDRONE 5 MG TAB PO SCH (08:22)
[2022-05-22] MEDS: FERROUS SULFATE 325 MG TAB PO SCH ×2 (08:22→18:13)
[2022-05-22] MEDS: levETIRAcetam 500 MG TAB PO SCH ×2 (08:22→21:00)
--- NOTE | 2022-05-22 12:02 | Hospitalist Progress Note ---
Date of Service May 22, 2022 Assessment & Plan (1) Myoclonus: (2) Seizure disorder: Plan: BREAKTHROUGH SEIZURE Patient presenting after a 30 min episode of generalized jerking/myoclonus without loss of consciousness History of seizure disorder, typically managed on Lamictal 250 mg BID S/p Keppra 1g IV in the ED, received Keppra 500mg IV BID and transitioned to Keppra 500 mg PO BID Lamictal level noted be therapeutic at 10.2 Continue CASINO CAGE SUPERVISOR Lamictal dosing Neurology recommendations noted Brain MRI: Highly limited exam. 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ICAL FALL INPATIENT Reported right buttock pain, resolved Right hip/pelvic x-ray:No evidence of acute osseous injury RN reported patient has been doing well and safe to discontinue 1 to 1 Bed/chair alarm Q15m checks. Patient encouraged to ring for assistance Fall precautions (3) Cerebral palsy: Plan: w/ intellectual disability Ambulates with walker at baseline (4) DVT prophylaxis: Plan: SCDs Dispo -medically stable for discharge, awaiting placement Admission and Anticipated Discharge Date Admission Date: May 15, 2022 Subjective Patient seen and examined Patient is Alert and oriented to person, place and time She is pleasant and kept talking about tomorrow being her birthday. Denied all complaints Physical Exam Constitutional: + well hydrated; no acute distress Eyes: PERRL, conjunctivae normal, anicteric sclerae ENMT: external ear and nose normal, oropharynx normal Respiratory: normal respiratory effort, lungs clear to auscultation Cardiovascular: Rate/Rhythm: regular rate and regular rhythm S1 S2 Gastrointestinal (Abdomen): normal bowel sounds, soft, nontender, no hepatosplenomegaly Musculoskeletal: No pedal edema Neurologic: PERRL, EOMI, accommodation nl, no face palsy, no dysarthria Psychiatric: A+Ox3, euthymic affect Results & Data Results & Data ([facility]) Vital Signs (Past 12 Hours) Vital Signs Temp Pulse Resp BP Pulse Ox O2 Del Method 05/22/22 07:40 36.8 C 92 H 16 102/60 98 Room Air
[2022-05-22] MEDS: ERGOCALCIFEROL 50,000 UNITS 1250 MCG CAP PO SCH (18:13)
[2022-05-23] MEDS: FERROUS SULFATE 325 MG TAB PO SCH ×2 (08:38→17:21)
[2022-05-23] MEDS: lamoTRIgine 100 MG TAB PO SCH ×2 (08:38→20:43)
[2022-05-23] MEDS: levETIRAcetam 500 MG TAB PO SCH ×2 (08:39→20:44)
[2022-05-23] MEDS: NORETHINDRONE 5 MG TAB PO SCH (08:39)
[2022-05-23] MEDS: lamoTRIgine 25 MG TAB PO SCH ×2 (08:39→20:43)
--- NOTE | 2022-05-23 12:04 | Hospitalist Progress Note ---
Date of Service May 23, 2022 Assessment & Plan (1) Myoclonus: (2) Seizure disorder: Plan: BREAKTHROUGH SEIZURE Patient presenting after a 30 min episode of generalized jerking/myoclonus without loss of consciousness History of seizure disorder, typically managed on Lamictal 250 mg BID S/p Keppra 1g IV in the ED, received Keppra 500mg IV BID and transitioned to Keppra 500 mg PO BID Lamictal level noted be therapeutic at 10.2 Continue SOAKER MEAT Lamictal dosing Neurology recommendations noted Brain MRI: Highly limited exam. 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ICAL FALL INPATIENT Reported right buttock pain, resolved Right hip/pelvic x-ray:No evidence of acute osseous injury Patient encouraged to ring for assistance Fall precautions (3) Cerebral palsy: Plan: w/ intellectual disability Ambulates with walker at baseline (4) DVT prophylaxis: Plan: SCDs Dispo -medically stable for discharge, awaiting placement Discussed with CM. Bed may not be available till next week Admission and Anticipated Discharge Date Admission Date: May 15, 2022 Subjective Patient seen and examined Patient is Alert and oriented to person, place and time Denied all complaints Physical Exam Constitutional: + well hydrated; no acute distress Eyes: PERRL, conjunctivae normal, anicteric sclerae ENMT: external ear and nose normal, oropharynx normal Respiratory: normal respiratory effort, lungs clear to auscultation Cardiovascular: Rate/Rhythm: regular rate and regular rhythm S1 S2 Gastrointestinal (Abdomen): normal bowel sounds, soft, nontender, no hepatosplenomegaly Musculoskeletal: No pedal edema Neurologic: PERRL, EOMI, accommodation nl, no face palsy, no dysarthria Psychiatric: A+Ox3, euthymic affect Results & Data Results & Data ([facility]) Vital Signs (Past 12 Hours) Vital Signs Temp Pulse Resp BP Pulse Ox O2 Del Method 05/23/22 07:52 36.7 C 73 18 128/79 97 Room Air
[2022-05-23] MEDS: ACETAMINOPHEN 325 MG TAB PO PRN (23:21)
[2022-05-24] MEDS: lamoTRIgine 100 MG TAB PO SCH ×2 (07:31→20:46)
[2022-05-24] MEDS: levETIRAcetam 500 MG TAB PO SCH ×2 (07:31→20:46)
[2022-05-24] MEDS: FERROUS SULFATE 325 MG TAB PO SCH ×2 (07:31→17:01)
[2022-05-24] MEDS: NORETHINDRONE 5 MG TAB PO SCH (07:31)
[2022-05-24] MEDS: lamoTRIgine 25 MG TAB PO SCH ×2 (07:31→20:46)
--- NOTE | 2022-05-24 13:03 | Hospitalist Progress Note ---
Date of Service May 24, 2022 Assessment & Plan (1) Myoclonus: (2) Seizure disorder: Plan: BREAKTHROUGH SEIZURE Patient presenting after a 30 min episode of generalized jerking/myoclonus without loss of consciousness History of seizure disorder, typically managed on Lamictal 250 mg BID S/p Keppra 1g IV in the ED, received Keppra 500mg IV BID and transitioned to Keppra 500 mg PO BID Lamictal level noted be therapeutic at 10.2 Continue [employer]EW[employer] SUPERINTENDENT Lamictal dosing Neurology recommendations noted Brain MRI: Highly limited exam. 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[employer] FALL INPATIENT Reported right buttock pain, resolved Right hip/pelvic x-ray:No evidence of acute osseous injury Fall precautions (3) Cerebral palsy: Plan: w/ intellectual disability Ambulates with walker at baseline (4) DVT prophylaxis: Plan: SCDs Dispo -medically stable for discharge, awaiting placement Discussed with CM. Bed may not be available till next week Admission and Anticipated Discharge Date Admission Date: May 15, 2022 Subjective Patient seen and examined Patient is Alert and oriented to person, place and time Denied all complaints Physical Exam Constitutional: + well hydrated; no acute distress Eyes: PERRL, conjunctivae normal, anicteric sclerae ENMT: external ear and nose normal, oropharynx normal Respiratory: normal respiratory effort, lungs clear to auscultation Cardiovascular: Rate/Rhythm: regular rate and regular rhythm S1 S2 Gastrointestinal (Abdomen): normal bowel sounds, soft, nontender, no hepatosplenomegaly Neurologic: PERRL, EOMI, accommodation nl, no face palsy, no dysarthria Psychiatric: A+Ox3, euthymic affect Results & Data Results & Data ([facility]) Vital Signs (Past 12 Hours) Vital Signs Temp Pulse Resp BP Pulse Ox O2 Del Method 05/24/22 07:58 37.1 C 66 16 98/59 L 96 Room Air
[2022-05-24] MEDS: ACETAMINOPHEN 325 MG TAB PO PRN (22:57)
[2022-05-25] MEDS: lamoTRIgine 25 MG TAB PO SCH ×2 (07:35→20:42)
[2022-05-25] MEDS: levETIRAcetam 500 MG TAB PO SCH ×2 (07:35→20:42)
[2022-05-25] MEDS: lamoTRIgine 100 MG TAB PO SCH ×2 (07:35→20:42)
[2022-05-25] MEDS: FERROUS SULFATE 325 MG TAB PO SCH ×2 (07:35→17:19)
[2022-05-25] MEDS: NORETHINDRONE 5 MG TAB PO SCH (07:36)
--- NOTE | 2022-05-25 11:07 | Hospitalist Progress Note ---
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[employer] FALL INPATIENT Reported right buttock pain, resolved Right hip/pelvic x-ray:No evidence of acute osseous injury Fall precautions (3) Cerebral palsy: Plan: w/ intellectual disability Ambulates with walker at baseline (4) DVT prophylaxis: Plan: SCDs Dispo -medically stable for discharge, awaiting placement Discussed with CM. Bed may not be available till next week Admission and Anticipated Discharge Date Admission Date: May 15, 2022 Subjective Patient seen and examined Denied all complaints Physical Exam Constitutional: + well hydrated; no acute distress Eyes: PERRL, conjunctivae normal, anicteric sclerae ENMT: external ear and nose normal, oropharynx normal Respiratory: normal respiratory effort, lungs clear to auscultation Cardiovascular: Rate/Rhythm: regular rate and regular rhythm S1 S2 Gastrointestinal (Abdomen): normal bowel sounds, soft, nontender, no hepa tosplenomegaly Musculoskeletal: no cyanosis or clubbing, extremities motor strength 5/5 Neurologic: PERRL, EOMI, accommodation nl, no face palsy, no dysarthria Psychiatric: A+Ox3, euthymic affect Results & Data Results & Data ([facility]) Vital Signs (Past 12 Hours) Vital Signs Temp Pulse Resp BP Pulse Ox O2 Del Method 05/25/22 07:41 36.6 C 73 16 99/67 L 100 Room Air
[2022-05-26] MEDS: NORETHINDRONE 5 MG TAB PO SCH (08:29)
[2022-05-26] MEDS: lamoTRIgine 25 MG TAB PO SCH ×2 (08:29→19:52)
[2022-05-26] MEDS: FERROUS SULFATE 325 MG TAB PO SCH ×2 (08:29→16:01)
[2022-05-26] MEDS: levETIRAcetam 500 MG TAB PO SCH ×2 (08:29→19:53)
[2022-05-26] MEDS: lamoTRIgine 100 MG TAB PO SCH ×2 (08:29→19:53)
[2022-05-26 09:00] LABS: Hematocrit (blood only) 37.1 % (34.1-44.9); Hemoglobin 11.8 g/dl (12.0-16.0); Mean Corpuscular Hemoglobin 28.7 pg (25.0-34.0); Mean Corpuscular Hgb Conc 31.8 g/dL (32.0-36.0); Mean Corpuscular Volume 90.3 fL (80.0-100.0); Mean Platelet Volume 9.5 fL (9.4-12.3); Platelet Count 319 K/uL (130-400); RDW Coefficient of Variation 16.5 % (11.5-14.5); Red Blood Count 4.11 M/uL (3.93-5.22); White Blood Count 4.38 K/ul (4.8-10.8)
[2022-05-26 09:16] LABS: Albumin Globulin Ratio 1.3 (0.9-2); Albumin Level 3.9 gm/dl (3.4-5.0); BUN Creatinine Ratio 13.9 (10-20); Bilirubin,Total 0.6 mg/dl (0.2-1.0); Calcium 8.9 mg/dl (8.5-10.1); Creatinine Clr Calc Pharmacy 90.2 ml/min; Est GFR (African American) 103.3 ml/min; Est GFR (Non-African American) 89.1 ml/min; Globulin 3.1 gm/dl (2.5-4.0); Potassium 4.4 mmol/L (3.5-5.1)
--- NOTE | 2022-05-26 10:16 | CT Scan Report ---
CT head/brain wo con CLINICAL HISTORY: 47 years-old Female with Rule out CVA. Acute strokelike symptoms TECHNIQUE: Multiple axial CT images of the head were obtained without contrast. A dose lowering tech nique was utilized adhering to the principles of ALARA. CT DOSE: 1074.96 mGy.cm COMPARISON: Head CT and brain MRI studies 05/15/2022 FINDINGS: No acute intracranial hemorrhage, midline shift, intra-axial mass, hydrocephalus, territorial ischemi a or abnormal extra-axial collection. 1.8 cm ovoid circumscribed cystic lesion is noted at the midlin e superior to the quadrigeminal plate cistern suggestive of a probable arachnoid cyst. The calvarium is intact. The paranasal sinuses, mastoid air cells, and middle ear cavities are clear . IMPRESSION: No acute intracranial abnormality. ACT 112: Negative or not required by law. The above report was generated using voice recognition software. It may contain grammatical, syntax o r spelling errors. Electronically signed by: Clinton Tomlinson M.D. 05/26/2022 10:14 AM
[2022-05-26 11:01] LABS: Appearance Urine Clear (Clear); Bacteria Urine Automated Negative (Negative); Bilirubin Urine Negative (Negative); Blood Urine Negative (Negative); Cast Urine Automated 0 /lpf (0-5); Color Urine Yellow; Glucose Urine UA Negative (Negative); Ketones Urine Negative (Negative); Leukocyte Esterase Urine 1+ (Negative); Nitrite Urine Negative (Negative); Protein Urine Negative (Negative); RBC Urine Automated 0-4 /hpf (0-4); Urobilinogen Urine Negative (Negative); pH Urine 8.5 (4.5-7.5)
--- NOTE | 2022-05-26 11:12 | Hospitalist Progress Note ---
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[employer] FALL INPATIENT Reported right buttock pain, resolved Right hip/pelvic x-ray:No evidence of acute osseous injury Fall precautions CT head this AM did not show acute abnormalities Labs were normal No new medications in the past few days Will continue to monitor (3) Cerebral palsy: Plan: w/ intellectual disability Ambulates with walker at baseline (4) DVT prophylaxis: Plan: SCDs Dispo -medically stable for discharge, awaiting placement Admission and Anticipated Discharge Date Admission Date: May 15, 2022 Subjective Had been called by RN that patient is unlike herself today She is usually pleasant Patient was seen and examined She seemed irritable, sitting in chair and did not seem to want to eat. Complained of pain at phlebotomy site Denied all other symptoms on ROS Random blood glucose was 88. Vital signs were normal Physical Exam Constitutional: + well hydrated; no acute distress Eyes: PERRL, conjunctivae normal, anicteric sclerae ENMT: external ear and nose normal, oropharynx normal Respiratory: normal respiratory effort, lungs clear to auscultation Cardiovascular: Rate/Rhythm: regular rate and regular rhythm S1 S2 Gastrointestinal (Abdomen): normal bowel sounds, soft, nontender, no hepatosplenomegaly Musculoskeletal: no cyanosis or clubbing, extremities motor strength 5/5 Neurologic: PERRL, EOMI, accommodation nl, no face palsy, no dysarthria No focal deficits Psychiatric: AOx3 but appear irritable this morning Results & Data Results & Data ([facility]) Vital Signs (Past 12 Hours) Vital Signs Temp Pulse Resp BP Pulse Ox O2 Del Method 05/26/22 08:41 36.9 C 72 16 107/69 100 Room Air 05/26/22 07:55 36.7 C 70 16 103/62 99 Room Air Laboratory Results Abnormal lab results 05/26/22 05/26/22 Range/Units 08:45 10:30 WBC 4.38 L (4.8-10.8) K/ul Hgb 11.8 L (12.0-16.0) g/dl MCHC 31.8 L (32.0-36.0) g/dL RDW Std Deviation 53.0 H (36.4-46.3) fL RDW Coeff of Becky 16.5 H (11.5-14.5) % Urine pH 8.5 H (4.5-7.5) Ur Leukocyte Esterase 1+ H (Negative) Urine WBC (Auto) 5-10 H (0-5) /hpf U Epithel Cells (Auto) 10-20 H (0-5) /lpf
[2022-05-27] MEDS: levETIRAcetam 500 MG TAB PO SCH ×2 (07:45→20:22)
[2022-05-27] MEDS: FERROUS SULFATE 325 MG TAB PO SCH ×2 (07:45→17:00)
[2022-05-27] MEDS: lamoTRIgine 25 MG TAB PO SCH ×2 (07:45→20:23)
[2022-05-27] MEDS: NORETHINDRONE 5 MG TAB PO SCH (07:46)
[2022-05-27] MEDS: lamoTRIgine 100 MG TAB PO SCH ×2 (07:46→20:23)
--- NOTE | 2022-05-27 11:52 | Hospitalist Progress Note ---
Date of Service May 27, 2022 Assessment & Plan (1) Myoclonus: (2) Seizure disorder: Plan: BREAKTHROUGH SEIZURE Patient presenting after a 30 min episode of generalized jerking/myoclonus without loss of consciousness History of seizure disorder, typically managed on Lamictal 250 mg BID S/p Keppra 1g IV in the ED, received Keppra 500mg IV BID and transitioned to Keppra 500 mg PO BID Lamictal level noted be therapeutic at 10.2 Continue RN [employer] Lamictal dosing Neurology recommendations noted Brain MRI: Highly limited exam. 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[employer] FALL INPATIENT Reported right buttock pain, resolved Right hip/pelvic x-ray:No evidence of acute osseous injury Fall precautions (3) Cerebral palsy: Plan: w/ intellectual disability Ambulates with walker at baseline (4) DVT prophylaxis: Plan: SCDs Dispo -medically stable for discharge, awaiting placement Possible dc tomorrow Admission and Anticipated Discharge Date Admission Date: May 15, 2022 Subjective Patient seen and examined Denied all complaints Physical Exam Constitutional: + well hydrated; no acute distress Eyes: PERRL, conjunctivae normal, anicteric sclerae ENMT: external ear and nose normal, oropharynx normal Respiratory: normal respiratory effort, lungs clear to auscultation Cardiovascular: Rate/Rhythm: regular rate and regular rhythm S1 S2 Gastrointestinal (Abdomen): normal bowel sounds, soft, nontender, no hepatosplenomegaly Musculoskeletal: No pedal edema Neurologic: PERRL, EOMI, accommodation nl, no face palsy, no dysarthria Psychiatric: A+Ox3, euthymic affect Results & Data Results & Data ([facility]) Vital Signs (Past 12 Hours) Vital Signs Temp Pulse Resp BP Pulse Ox O2 Del Method 05/27/22 07:26 36.9 C 70 16 106/60 100 Room Air
[2022-05-28] MEDS: lamoTRIgine 100 MG TAB PO SCH (07:50)
[2022-05-28] MEDS: lamoTRIgine 25 MG TAB PO SCH (07:50)
[2022-05-28] MEDS: NORETHINDRONE 5 MG TAB PO SCH (07:50)
[2022-05-28] MEDS: FERROUS SULFATE 325 MG TAB PO SCH (07:50)
[2022-05-28] MEDS: levETIRAcetam 500 MG TAB PO SCH (07:50)
--- NOTE | 2022-05-28 07:53 | Hospitalist Progress Note ---
Date of Service May 28, 2022 Assessment & Plan (1) Myoclonus: (2) Seizure disorder: Plan: Patient presenting after a 30 min episode of generalized jerking/myoclonus without loss of consciousness Breakthrough seizure --CT Head:No acute intracranial abnormality. H/O seizure disorder Continue Lamictal 250 mg BID Started on Keppra 500 mg PO BID Lamictal level noted be therapeutic at 10.2 Appreciate Neurology recommendations EEG unremarkable Seizure precautions Advised to follow-up with neurology upon discharge Abnormal Brain MRI: Highly limited exam. 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 Appreciate neurology input Needs repeat MRI repeat brain MRI in 1 to 3 months as outpatient S/P mechanical fall while inpatient Reported right buttock pain, resolved Right hip/pelvic x-ray:No evidence of acute osseous injury Fall precautions (3) Cerebral palsy: Plan: w/ intellectual disability Ambulates with walker at baseline (4) DVT prophylaxis: Plan: SCDs Admission and Anticipated Discharge Date Admission Date: May 15, 2022 Subjective Patient is seen and examined at bedside Reports having some discomfort at peripheral IV site Denies any chest pain, dyspnea, dizziness, nausea, abdominal pain Offers no other complaint Plan to be discharged today Review of Systems Review of Systems: All systems reviewed & are unremarkable except as noted in Subjective Physical Exam Physical Exam: Physical Exam: Vitals signs as noted above General Appearance:Moderately built and nourished, no apparent distress Head: normocephalic, Atraumatic Eyes: normal inspection, EOMI Neck: supple, Trachea midline Respiratory/Chest: Normal breath sounds, CTA, No accessory muscle use Cardiovascular: S1, S2, No murmur Abdomen/GI:Soft, Non tender, Bowel sounds present Extremities/Musculoskeletal:normal inspection, no edema Neurologic/Psych:AAOX2, grossly no focal neurological deficits Skin: normal color, warm Results & Data Results & Data ([facility]) Vital Signs (Past 12 Hours) Vital Signs Temp Pulse Resp BP BP Pulse Ox O2 Del Method 05/28/22 07:45 102/62 05/28/22 07:23 36.8 C 61 16 95/62 L 93/58 L 100 Room Air 05/27/22 21:15 37.3 C 69 20 116/74 99 Room Air
--- NOTE | 2022-05-28 12:24 | Discharge Summary ---
Date of Service May 28, 2022 Admission HPI Per Admitting Provider 46-year-old female PMH intellectual disability, ataxic cerebral palsy, absence seizure disorder, and other problems listed below who presents the ED for evaluation of seizure-like activity. Patient's mother is the bedside who provides some history. Patient recently moved to [place], [place] with her family. She was visiting the area for an appointment with her neurologist, Dr. Unger, on 05/13/2022. Patient's mother states that this morning while they were out to breakfast, patient started to have generalized jerking however did not lose consciousness. Symptoms went on for about 30 minutes and EMS was called. Patient received IV Ativan and IV Versed in route to the ED. Patient's mother states that she typically has a seizure every few weeks at home. Last seizure was about 3 weeks ago. States that patient typically will stare off while having a seizure and sometimes fall over if she is standing. Episodes usually last about 20 to 30 seconds and patient is nonresponsive. No other recent illnesses, fevers, chills. Denies headache and blurred vision. There was no tongue biting or loss of bowel or bladder function during today's episode. I was able to arouse the patient during my exam. She states " I do not know what happened this morning, I could not stop jerking. This is never happened to me before." In the ED, patient is hemodynamically stable. Head CT is unremarkable for acute findings. Labs are unremarkable. Patient was given IVF and loaded with 1 g of Keppra IV. Admission Exam Per Admitting Provider Physical Exam Constitutional: WD/WN, vitals as above Eyes: PERRL, conjunctivae normal, anicteric sclerae ENMT: external ear and nose normal, oropharynx normal Respiratory: normal respiratory effort, lungs clear to auscultation Cardiovascular: Rate/Rhythm: regular rate and regular rhythm Vessels: normal peripheral pulses Extremities: no edema Gastrointestinal (Abdomen): normal bowel sounds, soft, nontender, no hepatosplenomegaly Musculoskeletal: Extremities: no cyanosis and no clubbing strength 4/5 RLE, 3-4/5 LLE -- chronic per patient's mother Skin: no rashes, warm and dry Neurologic: PERRL, EOMI, accommodation nl, no face palsy, no dysarthria Psychiatric: A+Ox3, euthymic affect Insight: + limited insight (underlying intellectual disability) Principal Diagnosis Seizure Intellectual disability Iron deficiency anemia Vitamin D Deficiency Discharge Data Allergies Allergy/AdvReac Type Severity Reaction Status Date / Time No Known Allergies Allergy Verified 05/15/22 10:41 Consultations 05/15/22 13:07 ED Decision to Admit Stat 05/15/22 15:15 Consult Neurology Routine Procedures Performed Laboratory Results WBC 4.38 K/ul (4.8-10.8) L 05/26/22 08:45 RBC 4.11 M/uL (3.93-5.22) 05/26/22 08:45 Hgb 11.8 g/dl (12.0-16.0) L 05/26/22 08:45 Hct 37.1 % (34.1-44.9) 05/26/22 08:45 MCV 90.3 fL (80.0-100.0) 05/26/22 08:45 MCH 28.7 pg (25.0-34.0) 05/26/22 08:45 MCHC 31.8 g/dL (32.0-36.0) L 05/26/22 08:45 RDW Std Deviation 53.0 fL (36.4-46.3) H 05/26/22 08:45 RDW Coeff of Becky 16.5 % (11.5-14.5) H 05/26/22 08:45 Plt Count 319 K/uL (130-400) 05/26/22 08:45 MPV 9.5 fL (9.4-12.3) 05/26/22 08:45 Immature Gran % (Auto) 0.3 % 05/15/22 09:55 Neut % (Auto) 67.8 % 05/15/22 09:55 Lymph % (Auto) 22.1 % 05/15/22 09:55 [place] % (Auto) 8.4 % 05/15/22 09:55 Eos % (Auto) 0.6 % 05/15/22 09:55 Baso % (Auto) 0.8 % 05/15/22 09:55 Neut # (Auto) 2.43 K/uL (1.4-6.5) 05/15/22 09:55 Lymph # (Auto) 0.79 K/uL (1.2-3.4) L 05/15/22 09:55 Fallon # (Auto) 0.30 K/uL (0.24-0.82) 05/15/22 09:55 Eos # (Auto) 0.02 K/uL (0-0.50) 05/15/22 09:55 Baso # (Auto) 0.03 K/uL (0-0.2) 05/15/22 09:55 Immature Gran # (Auto) 0.01 K/uL (0.00-0.02) 05/15/22 09:55 ESR 28 mm/hr (0-20) H 05/15/22 14:48 Sodium 140 mmol/L (136-145) 05/26/22 08:45 Potassium 4.4 mmol/L (3.5-5.1) 05/26/22 08:45 Chloride 107 mmol/L (98-107) 05/26/22 08:45 Carbon Dioxide 29 mmol/L (21-32) 05/26/22 08:45 Anion Gap 4 (3-11) 05/26/22 08:45 BUN 11 mg/dl (6-23) 05/26/22 08:45 Creatinine 0.79 mg/dl (0.6-1.2) 05/26/22 08:45 Est Cr Clr Drug Dosing 90.2 ml/min 05/26/22 08:45 Est GFR ( Amer) 103.3 ml/min 05/26/22 08:45 Est GFR (Non-Af Amer) 89.1 ml/min 05/26/22 08:45 BUN/Creatinine Ratio 13.9 (10-20) 05/26/22 08:45 Glucose 93 mg/dl (70-99(Fasting)) 05/26/22 08:45 POC Glucose 88 mg/dl (70-99) 05/26/22 08:59 Calcium 8.9 mg/dl (8.5-10.1) 05/26/22 08:45 Magnesium 2.0 mg/dl (1.7-2.4) 05/15/22 09:55 Iron 19 mcg/dl (35-150) L 05/15/22 14:48 Ferritin 6.2 ng/ml (8-388) L 05/15/22 14:48 Total Bilirubin 0.6 mg/dl (0.2-1.0) 05/26/22 08:45 AST 18 U/L (13-39) 05/26/22 08:45 ALT 11 U/L (7-52) 05/26/22 08:45 Alkaline Phosphatase 55 U/L (34-104) 05/26/22 08:45 Ammonia 16.0 umol/L (18-72) L 05/15/22 14:48 Troponin I High Sens 3.4 pg/ml (0-14) 05/15/22 11:24 C-Reactive Protein < 0.50 mg/dl (0-0.5) 05/15/22 14:48 Total Protein 7.0 gm/dl (6.0-8.3) 05/26/22 08:45 Albumin 3.9 gm/dl (3.4-5.0) 05/26/22 08:45 Globulin 3.1 gm/dl (2.5-4.0) 05/26/22 08:45 Albumin/Globulin Ratio 1.3 (0.9-2) 05/26/22 08:45 Vitamin B12 222 pg/ml (180-914) 05/15/22 14:48 25-OH Vitamin D Total 11.2 ng/ml (30-100) L 05/15/22 14:48 TSH 1.288 uIu/ml (0.300-4.500) 05/15/22 09:55 Urine Color Yellow 05/26/22 10:30 Urine Appearance Clear (Clear) 05/26/22 10:30 Urine pH 8.5 (4.5-7.5) H 05/26/22 10:30 Ur Specific [place] 1.010 (1.000-1.030) 05/26/22 10:30 Urine Protein Negative (Negative) 05/26/22 10:30 Urine Glucose (UA) Negative (Negative) 05/26/22 10:30 Urine Ketones Negative (Negative) 05/26/22 10:30 Urine Blood Negative (Negative) 05/26/22 10:30 Urine Nitrite Negative (Negative) 05/26/22 10:30 Urine Bilirubin Negative (Negative) 05/26/22 10:30 Urine Urobilinogen Negative (Negative) 05/26/22 10:30 Ur Leukocyte Esterase 1+ (Negative) H 05/26/22 10:30 Urine WBC (Auto) 5-10 /hpf (0-5) H 05/26/22 10:30 Urine RBC (Auto) 0-4 /hpf (0-4) 05/26/22 10:30 U Hyaline Cast (Auto) 0 /lpf (0-5) 05/26/22 10:30 U Epithel Cells (Auto) 10-20 /lpf (0-5) H 05/26/22 10:30 Urine Bacteria (Auto) Negative (Negative) 05/26/22 10:30 Lamotrigine 10.2 mcg/mL (4.0-18.0) 05/15/22 14:48 SARS-CoV-2 (PCR) NEGATIVE (Negative) 05/15/22 10:20 Influenza Type A (PCR) Negative (Neg) 05/15/22 10:20 Influenza Type B (PCR) Negative (Neg) 05/15/22 10:20 RSV (RT-PCR) Negative (Neg) 05/15/22 10:20 SARS-CoV-2, RNA, NAAT NEGATIVE (NEGATIVE) 05/27/22 11:40 Impressions Chest X-Ray 05/15/22 09:54 XR chest 1V portable CLINICAL HISTORY: weakness TECHNIQUE: Single frontal radiograph of the chest was obtained. Comparison: Comparison is made to chest radiograph 03/03/2017 FINDINGS: No lines and tubes are seen. The cardiomediastinal silhouette is normal. The lungs are clear. No evidence of pleural effusion or pneumothorax. IMPRESSION: No acute chest disease. ACT 112: Negative or not required by law. Electronically signed by: Dominic Ruffin M.D. 05/15/2022 11:[address] 05/15/22 11:[address] DOSE: 1221.74 mGy.cm HISTORY: seizure TECHNIQUE: Multiaxial CT images of the cervical spine were performed and reformatted in the sagittal and coronal plane without the use of contrast. A dose lowering technique was utilized adhering to the principles of ALARA. COMPARISON: Cervical spine CT 07/15/2013. FINDINGS: No fractures. No subluxation. Prevertebral soft tissues and the C1-C2 interval are intact. No pneumothorax. A few subcentimeter thyroid nodules measuring up to 9 mm. These appear stable and do not meet CT criteria for follow-up. IMPRESSION: No fractures within the cervical spine. ACT 112: Negative or not required by law. Electronically signed by: Mitchell Parker M.D. 05/15/2022 12:44 PM Brain MRI 05/15/22 14:23 MR brain seizure wo/w con CLINICAL HISTORY: seizure TECHNIQUE: Multiplanar and multisequence MR images of the brain were obtained prior to and following administration of gadolinium contrast. Comparison: None available at the time of this dictation. FINDINGS: Extensive patient motion degrades the quality of this exam. There is suggestion of increased DWI signal at the right paramedian frontal lobe however no corresponding ADC signal is seen to suggest true infarct. The white matter is unremarkable. The ventricular system is normal in appearance. No mass or abnormal enhancement is seen. There is no mass effect or midline shift. There is no evidence of acute intraparenchymal hemorrhage. No extra axial fluid collections are seen. The corpus callosum, pituitary gland, and cerebellar tonsils appear grossly unremarkable. There is questionable asymmetric atrophy and minimal T2 hyperintensity in the left hippocampus. Flow voids of the major intracranial arterial vessels are identified. The imaged portions of the paranasal sinuses, mastoid air cells, and orbits are unremarkable. IMPRESSION: Highly limited exam. 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 ACT 112: Negative or not required by law. Electronically signed by: Dominic Ruffin M.D. 05/16/2022 11:54 AM Hip/Pelvis X-Ray 05/20/22 10:57 XR hip RT 2V w pelvis CLINICAL HISTORY: r buttock pain s/p fall TECHNIQUE: 2 views of the right hip and single frontal view of the pelvis were obtained. Comparison: None available at the time of this dictation. FINDINGS: There is no evidence of an acute fracture. Joint spaces are well-preserved. No soft tissue abnormality is seen. IMPRESSION: No evidence of acute osseous injury. ACT 112: Negative or not required by law. Electronically signed by: Dominic Ruffin M.D. 05/20/2022 3:[address] 05/26/22 09:03 CT head/brain wo con CLINICAL HISTORY: 47 years-old Female with Rule out CVA. Acute strokelike symptoms TECHNIQUE: Multiple axial CT images of the head were obtained without contrast. A dose lowering technique was utilized adhering to the principles of ALARA. CT DOSE: 1074.96 mGy.cm COMPARISON: Head CT and brain MRI studies 05/15/2022 FINDINGS: No acute intracranial hemorrhage, midline shift, intra-axial mass, hydrocephalus, territorial ischemia or abnormal extra-axial collection. 1.8 cm ovoid circumscribed cystic lesion is noted at the midline superior to the quadrigeminal plate cistern suggestive of a probable arachnoid cyst. The calvarium is intact. The paranasal sinuses, mastoid air cells, and middle ear cavities are clear. IMPRESSION: No acute intracranial abnormality. ACT 112: Negative or not required by law. The above report was generated using voice recognition software. It may contain grammatical, syntax or spelling errors. Electronically signed by: Clinton Tomlinson M.D. 05/26/2022 10:14 AM Ordered Studies 05/15/22 11:10 CT cervical spine wo con Stat CT head/brain wo con Stat 05/15/22 14:23 MRI Brain [MR brain seizure wo/w con] Routine 05/26/22 09:03 CT head/brain wo con Stat Hospital Course (1) Myoclonus: (2) Seizure disorder: Patient presenting after a 30 min episode of generalized jerking/myoclonus without loss of consciousness Breakthrough seizure --CT Head:No acute intracranial abnormality. H/O seizure disorder Continue Lamictal 250 mg BID Started on Keppra 500 mg PO BID Lamictal level noted be therapeutic at 10.2 Appreciate Neurology recommendations EEG unremarkable Seizure precautions Advised to follow-up with neurology upon discharge Abnormal Brain MRI: Highly limited exam. 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 Appreciate neurology input Needs repeat MRI repeat brain MRI in 1 to 3 months as outpatient S/P mechanical fall while inpatient Reported right buttock pain, resolved Right hip/pelvic x-ray:No evidence of acute osseous injury Fall precautions (3) Cerebral palsy: w/ intellectual disability Ambulates with walker at baseline (4) DVT prophylaxis: SCDs Total Time Total Time Spent Total Time Spent (In Minutes): 48 minutes Discharge Plan Discharge Items Patient Disposition: Transfer [facility] Reason For Visit: SEIZURE Discharge Diagnosis: Seizure Intellectual disability Iron deficiency anemia Vitamin D Deficiency Activity: Resume your previous activity Non-emergency contact: Primary Care Provider and Neurologist Call non-emergency contact if: you have any medication questions Follow-up/Referrals: Nannette Pino MD [Primary Care Provider] - Diet: Regular Addtl Attending Provider Instructions: Mrs Perez You came to the hospital due to seizure episode You were evaluated by Neurology and changes made to your medications as detailed in the medication list. You will need MRI brain in 1 - 3 months as recommended by Neurology. Please f ollow up with your Primary Doctor and Neurologist. It was a pleasure taking care of you. Addtl [facility] Provider Instructions: Follow-up with your primary care physician Dr. Nannette Pino in 1 week Follow-up with your neurologist in 4 weeks Seek immediate medical attention if your symptoms reoccur or worsen Please take all medications as instructed on discharge list below. Please call if you have any questions or problems. You can reach a [facility] hospitalist on duty at [facility] 24 hours a day by calling [phone] Pending Studies at Discharge: No Stand-Alone Forms: My [facility] Skilled Items Patient informed of condition?: Yes DNR: No Discharge Level of Care: Skilled Communicable Disease: No Discharge Prognosis: Stable Lines: None Urinary Catheter: No Medications and DC Order Prescriptions: New levetiracetam [Keppra] 500 mg Tablet 500 mg PO BID Qty: 60 0RF ergocalciferol (vitamin D2) 1,250 mcg (50,000 unit) Capsule 50,000 unit PO Q7D Qty: 6 0RF ferrous sulfate 325 mg (65 mg iron) Tablet,Delayed Release (Dr/Ec) 325 mg PO BIDM Qty: 60 0RF Continued lamotrigine 25 mg tablet 50 mg PO BID 90 Days Qty: 120 0RF Rx Instructions: take with each 200 mg tablet, total 250 mg bid norethindrone acetate 5 mg tablet 5 mg PO DAILY 90 Days Qty: 30 0RF Changed lamotrigine 200 mg tablet 200 mg PO BID Qty: 60 0RF Rx Instructions: TAKE 1 TABLET BY MOUTH TWICE A DAY Discharge Orders: Discharge Order (Routine); Ordered 05/28/22 Ordered By: Jaguar Barba Admission Data Admit Date/Time: 05/15/22 13:32 Attending Provider: Jagura Barba Admit Provider: Nedra Guthrie Primary Care Provider: Nannette Pino Other Providers: Nedra Guthrie ; David Unger ; Marcelino Isaacs Other Interventions: Discharge Summary Assessment (RN) Last Done: 05/28/22 09:43
== END 2022-05-28 10:17 ==
LOC: ED 09:39 → INTOOBSV 13:32 → 2S 13:32 → SUATTDRO 13:32 → 2S 14:14 → 3N 05-17 17:49